=== PATIENT | female | born 1935 ===

== ENCOUNTER 2018-10-21 21:18 | Inpatient (IN) | payer MEDICARE, OTHER ==
[2018-10-21] MEDS ORDERED: Albuterol-Ipratrop 3 mg / 0.5 (3 ml) UD INH STA (21:31)
[2018-10-21] MEDS ORDERED: Magnesium Sulfate 1 gm in D5W 1 GM/100 ML BAG IVPB ONE (21:32)
[2018-10-21] MEDS ORDERED: Albuterol-Ipratrop 3 mg / 0.5 (3 ml) UD ONE ×2 (21:32→21:34)
--- NOTE | 2018-10-21 21:37 | C.PDOC ---
History Of Present Illness 83 year old female is brought to the ED by EMS for evaluation of SOB and wheezing. Patient was given Duoneb, Albuterol and Solumedrol on the field. Patient denies any previous medical history, not currently taking medications. Patient denies fever, chills, CP, palpitations, headache, injury, fall, trauma, weakness, numbness. Chief Complaint (Nursing): Respiratory Distress History Per: Patient, EMS History/Exam Limitations: no limitations Onset/Duration Of Symptoms: Hrs Current Symptoms Are (Timing): Still Present Initiating Event: Upper Respiratory Illness Quality: Tightness Current Respiratory Medications: See Home Med List Recent travel outside of the [place]: No Additional History Per: EMS Past Medical History Reviewed: Historical Data, Nursing Documentation, Vital Signs Vital Signs: Last Vital Signs Temp 98.1 F 10/21/18 21:27 Pulse 123 H 10/21/18 21:27 Resp 34 H 10/21/18 21:27 BP 147/97 H 10/21/18 21:27 Pulse Ox 98 10/21/18 21:27 - Medical History PMH: No Chronic Diseases Surgical History: No Surg Hx Family History: States: Unknown Family Hx - Social History Hx Alcohol Use: No Hx Substance Use: No - Immunization History Hx Tetanus Toxoid Vaccination: No Hx Influenza Vaccination: No Hx Pneumococcal Vaccination: No Review Of Systems Constitutional: Negative for: Fever, Chills Cardiovascular: Negative for: Chest Pain, Palpitations Respiratory: Positive for: Shortness of Breath, Wheezing. Negative for: Cough Gastrointestinal: Negative for: Nausea, Vomiting, Abdominal Pain Skin: Negative for: Rash Neurological: Negative for: Headache, Dizziness Physical Exam - Physical Exam Appears: Non-toxic, Other (dyspnic) Skin: Normal Color, Warm, Dry Head: Atraumatic, Normacephalic Eye(s): bilateral: Normal Inspection Oral Mucosa: Moist Neck: Normal ROM, Supple Chest: Symmetrical Cardiovascular: Rhythm Regular Respiratory: No Rales, No Rhonchi, Wheezing Gastrointestinal/Abdominal: Soft, No Tenderness, No Guarding, No Rebound Extremity: Normal ROM, No Tenderness, Pedal Edema (2+ bilaterally ) Neurological/Psych: Oriented x3, Normal Speech, Normal Cognition Gait: Unable To Assess ED Course And Treatment - Laboratory Results Result Diagrams: 10/21/18 21:35 10/21/18 21:35 ECG: Interpreted By Me, Viewed By Me ECG Rhythm: Sinus Tachycardia, ST/T Changes ECG Interpretation: No Acute Changes, Abnormal Interpretation Of ECG: Sinus tachycardia, poor R - wave progression V1 to V5., no acute chnages Rate From EC O2 Sat by Pulse Oximetry: 98 (BIPAP) Pulse Ox Interpretation: Normal - Radiology CXR: Interpreted by Me, Viewed By Me CXR Interpretation: Yes: Other (Right sided pleural effusion/ density.) - CT Scan/US CT chest Other Rad Studies (CT/US): Read By Radiologist, Radiology Report Reviewed CT/US Interpretation: CLINICAL HISTORY: Shortness of breath/pleural effusion. TECHNIQUE: Multiple axial, coronal, sagittal CT images were obtained through chest without IV contrast material. COMMENTS: There is no evidence of hilar or mediastinal lymphadenopathy. The heart is severely enlarged with pulmonary venous congestive changes seen consistent with CHF. Diffuse pulmonary edema is seen. There are large right and small left pleural effusions present. Small pericardial effusion is seen. Diffuse coronary arterial calcifications are present. Pulmonary arterial tree is markedly dilated consistent with pulmonary artery hypertension. Right lower lobe and right middle lobe consolidations consistent with atelectasis versus pneumonia. The visualized portions of the liver are of uniform attenuation without mass or defect. There is no intra or extrahepatic biliary ductal dilatation. The spleen is unremarkable. The visualized pancreas is of normal contour and attenuation characteristics. There is no evidence of adrenal mass. The visualized portions of the kidneys present no abnormalities. There is moderate levoscoliosis seen with apex at the level of thoracolumbar junction. There is minimal amount of chronic compression fracture deformity involving T9 vertebral body. Multilevel degenerative changes are seen involving the thoracic spine. Scattered calcifications are seen involving the aorta and visualized major branches compatible with atherosclerosis. IMPRESSION: 1. Severe cardiomegaly with pulmonary venous congestive changes and diffuse pulmonary edema consistent with CHF. 2. Large right and small left pleural effusions. 3. Small pericardial effusion. 4. Markedly dilated pulmonary arterial tree consistent with pulmonary artery hypertension. 5. RLL and RLL consolidations. . Electronically signed on Oct 21, 2018 11:39:57 PM EST by: William Hinkle M.D., [place] Certified By ABR & CBCCT. Fellowship Trained MRI and CT Specialist Medical Decision Making Medical Decision Making: Plan: * EKG * Labs * CXR * Duoneb * Magnesium sulfate * Blood culture * BIPAP On reevaluation patient having less wheezes and with more air entry in lung fay 22:15- Patient reports history of leg swelling for the past month. 23:30 - Dr. Fontaine Medicine fire battalion chief was notified and accepts the patient for admission. 23: 35 -Dr. Singh Fortune ICU fire battalion chief notified about the patient and will come evaluate the patient Disposition Discussed With Dr.: Erika Fontaine Doctor Will See Patient In The: Hospital Counseled Patient/Family Regarding: Diagnosis - Disposition Disposition: HOSPITALIZED Disposition Time: 23:37 Condition: CRITICAL Forms: [employer] ([place]) - POA Present On Arrival: None - Clinical Impression Clinical Impression: Acute CHF, Dyspnea - Scribe Statement The provider has reviewed the documentation as recorded by the Scribe Morgan Sy All medical record entries made by the Scribe were at my direction and personally dictated by me. I have reviewed the chart and agree that the record accurately reflects my personal performance of the history, physical exam, medical decision making, and the department course for this patient. I have also personally directed, reviewed, and agree with the discharge instructions and disposition.
[2018-10-21 21:38] LABS: BASO % 0.5 % (0.0-2.0); EOS % 0.5 % (0.0-4.0); HEMOGLOBIN 13.1 g/dL (11.0-16.0); LYMPH # 2.7 K/uL (1.0-4.3); MEAN CELL VOLUME 98.7 fL (81.0-99.0); MEAN CORPUSCULAR HEMOGLOBIN 32.9 pg (27.0-31.0); MEAN CORPUSCULAR HGB CONC 33.3 g/dL (33.0-37.0); MEAN PLATELET VOLUME 9.3 fL (7.2-11.7); MONO # 0.5 K/uL (0.0-0.8); MONO % 5.6 % (0.0-10.0); NEUT # 5.6 K/uL (1.8-7.0); NEUT % 63.4 % (50.0-75.0); NRBC % 0.1 % (0.0-2.0); RBC 3.98 Mil/uL (3.80-5.20); RED CELL DISTRIBUTION WIDTH 13.1 % (11.5-14.5); WHITE BLOOD COUNT 8.9 K/uL (4.8-10.8)
[2018-10-21 21:50] LABS: ALB/GLOB RATIO 1.4 (1.0-2.1); ALBUMIN 4.3 g/dL (3.5-5.0); ALT/SGPT 74 U/L (9-52); AST/SGOT 77 U/L (14-36); BLOOD UREA NITROGEN 41 mg/dL (7-17); CALCIUM 9.1 mg/dl (8.6-10.4); GFR NON-AFRICAN AMERICAN > 60
[2018-10-21 21:57] LABS: INR 1.3; PROTHROMBIN TIME 14.6 SECONDS (9.7-12.2)
[2018-10-21 21:58] LABS: B-TYPE NATRIURETIC PEPTIDE 15700 pg/mL (0-900)
[2018-10-22 00:30] LABS: ABG ALLEN TEST POS; ARTERIAL BLOOD GAS HCO3 21.3 mmol/L (21-28); ARTERIAL BLOOD GAS O2 SAT 97.5 % (95-98); ARTERIAL BLOOD GAS PCO2 32 mm/Hg (35-45); ARTERIAL BLOOD GAS PH 7.39 (7.35-7.45); ARTERIAL BLOOD GAS PO2 83 mm/Hg (80-100); ARTERIAL BLOOD GAS TCO2 20.4 mmol/L (22-28)
[2018-10-22] MEDS: Potassium Chloride 20 mEq/15 ml LIQ UD PO SCH ×3 (00:46→16:00)
[2018-10-22] MEDS: Acetylcysteine 20% Inhal Soln (4ml) PO SCH ×2 (00:47→12:06)
[2018-10-22] MEDS ORDERED: Iodixanol 320 MG/ML 100 ML BOTTLE IV ONE (00:52)
--- NOTE | 2018-10-22 02:08 | CP.PCM.CON ---
History of Present Illness - History of Present Illness History of Present Illness: 83 y/o female with no significant pmx (patient did not see a physician and took herbal medications), presents to [facility] with c/o SOB. SOB described as progressive, over the last 4 weeks. (+)decrease exercise tolerance, denies any blury vision, denies any headaches, denies any chest pain Pmx: deneis Psurg hx: deneis Social history: long time history of smoking, worked as cleaning person, retired in 1999, no illicit drugs Review of Systems - Constitutional Constitutional: As Per HPI - Cardiovascular Cardiovascular: As Per HPI - Respiratory Respiratory: As Per HPI - Gastrointestinal Gastrointestinal: As Per HPI Past Patient History - Infectious Disease Hx of Infectious Diseases: None - Tetanus Immunizations Tetanus Immunization: Unknown - Past Medical History & Family History Past Medical History?: Yes Past Family History: Reviewed and not pertinent - Past Social History Smoking Status: Never Smoked - PSYCHIATRIC Hx Substance Use: No - SURGICAL HISTORY Hx Surgeries: No - ANESTHESIA Hx Anesthesia: No Meds Allergies/Adverse Reactions: Allergies Allergy/AdvReac Type Severity Reaction Status Date / Time No Known Allergies Allergy Verified 10/21/18 21:29 - Medications Medications: Current Medications Acetylcysteine (Acetylcysteine 20%) 6 ml PO Q12H ISAIAS Stop: 10/23/18 12:31 Last Admin: 10/22/18 00:47 Dose: 6 ml Potassium Chloride (Potassium Chloride Oral Soln) 40 meq PO Q8H ISAIAS Stop: 10/22/18 16:31 Last Admin: 10/22/18 00:46 Dose: 40 meq Physical Exam - Head Exam Head Exam: ATRAUMATIC, NORMAL INSPECTION - Eye Exam Eye Exam: Conjunctival injection, Normal appearance - ENT Exam ENT Exam: Mucous Membranes Moist - Neck Exam Neck exam: Positive for: Normal Inspection Additional comments: (+)JVD - Respiratory Exam Respiratory Exam: Clear to Auscultation Bilateral, Rales, Respiratory Distress - Cardiovascular Exam Cardiovascular Exam: REGULAR RHYTHM, +S1, +S2, Systolic Murmur - GI/Abdominal Exam GI & Abdominal Exam: Normal Bowel Sounds, Soft - Back Exam Back exam: NORMAL INSPECTION - Neurological Exam Neurological exam: Alert, Oriented x3 - Skin Skin Exam: Normal Color Results - Vital Signs Recent Vital Signs: Last Vital Signs Temp 97.9 F 10/22/18 00:48 Pulse 112 H 10/22/18 00:48 Resp 26 H 10/22/18 00:48 BP 115/79 10/22/18 00:48 Pulse Ox 98 10/22/18 00:48 - Labs Result Diagrams: 10/21/18 21:35 10/21/18 21:35 Labs: Laboratory Results - last 24 hr 10/21/18 10/21/18 10/21/18 21:35 21:35 21:35 WBC 8.9 RBC 3.98 Hgb 13.1 Hct 39.3 MCV 98.7 MCH 32.9 H MCHC 33.3 RDW 13.1 Plt Count 274 MPV 9.3 Neut % (Auto) 63.4 Lymph % (Auto) 30.0 [place] % (Auto) 5.6 Eos % (Auto) 0.5 Baso % (Auto) 0.5 Neut # (Auto) 5.6 Lymph # (Auto) 2.7 [place] # (Auto) 0.5 Eos # (Auto) 0.0 Baso # (Auto) 0.0 PT 14.6 H INR 1.3 APTT 24 D-Dimer, Quantitative 2192 H Puncture Site pCO2 pO2 HCO3 ABG pH ABG Total CO2 ABG O2 Saturation ABG Base Excess Angelo Test ABG Potassium Glucose Lactate Liter Flow Crit Value Called To Crit Value Called By Crit Value Read Back Blood Gas Notified Time Sodium 142 Potassium 3.1 L Chloride 107 Carbon Dioxide 24 Anion Gap 14 BUN 41 H Creatinine 0.8 Est GFR ( Amer) > 60 Est GFR (Non-Af Amer) > 60 Random Glucose 176 H Calcium 9.1 Total Bilirubin 0.8 AST 77 H ALT 74 H Alkaline Phosphatase 94 Troponin I NT-Pro-B Natriuret Pep 56874 H Total Protein 7.4 Albumin 4.3 Globulin 3.1 Albumin/Globulin Ratio 1.4 Arterial Blood Potassium 10/21/18 10/22/18 22:28 00:25 WBC RBC Hgb Hct MCV MCH MCHC RDW Plt Count MPV Neut % (Auto) Lymph % (Auto) [place] % (Auto) Eos % (Auto) Baso % (Auto) Neut # (Auto) Lymph # (Auto) [place] # (Auto) Eos # (Auto) Baso # (Auto) PT INR APTT D-Dimer, Quantitative Puncture Site Rradial pCO2 32 L pO2 83 HCO3 21.3 ABG pH 7.39 ABG Total CO2 20.4 L ABG O2 Saturation 97.5 ABG Base Excess -4.6 L Angelo Test Pos ABG Potassium 2.5 L* Glucose 180 H Lactate 2.1 Liter Flow 3.0 Crit Value Called To Dr. chester menjivar Crit Value Called By Ruthann jimenez,weatherization specialist Crit Value Read Back Y Blood Gas Notified Time 30 Sodium 146.0 Potassium Chloride 112.0 H Carbon Dioxide Anion Gap BUN Creatinine Est GFR ( Amer) Est GFR (Non-Af Amer) Random Glucose Calcium Total Bilirubin AST ALT Alkaline Phosphatase Troponin I 0.1530 H* NT-Pro-B Natriuret Pep Total Protein Albumin Globulin Albumin/Globulin Ratio Arterial Blood Potassium 2.5 L* Assessment & Plan - Assessment and Plan (Free Text) Assessment: Acute on chronic respiratory failure: suspect 2nd heart failure, avoid fluid overloaded states, continue bi-pap PRN, pre-test probability of PE low -Acute on chronic diastolic heart failure/NSTEMI: check trop q8hrs, start IV hep princess, start asa, av jake regina,echo, start acei as bp tolerates -Pulmonary HTN: exact cause unknown ?herbal medication (phenphen), autoimmue, chronic PE, valvular or EGF, start solumedrol, check RF, CLAIRE, -NPO -BGM q6hrs, ISS lispro _DVT ppx heparin IV -PUD ppx protonix Multiple diagnostic tests pending (CT evalute vasculature) d/w ICU nurse. - Date & Time Date: 10/22/18 Time: 02:14
[2018-10-22] MEDS ORDERED: Heparin25000 units/250ml 1/2NS 25,000 UNITS/250 ML BAG IV PRN (02:14)
[2018-10-22] MEDS ORDERED: MethylPREDNISolone 40 mg Vial IVP SCH (02:30)
[2018-10-22 02:38] LABS: CK-MB 3.4 ng/mL (0.0-3.38); TROPONIN I 0.396 ng/mL (0.00-0.120)
[2018-10-22] MEDS: Piperacillin/Tazobact 3.375 GM in Sodium Chloride 100 ML IVPB SCH ×4 (04:21→22:23)
[2018-10-22 06:29] LABS: ALB/GLOB RATIO 1.4 (1.0-2.1); ALBUMIN 3.9 g/dL (3.5-5.0); ALT/SGPT 83 U/L (9-52); AST/SGOT 91 U/L (14-36); BLOOD UREA NITROGEN 37 mg/dL (7-17); CALCIUM 8.9 mg/dl (8.6-10.4); GFR NON-AFRICAN AMERICAN > 60; HDL CHOLESTEROL 66 mg/dL (30-70)
[2018-10-22 06:40] LABS: LDL CHOLESTEROL 95 mg/dL (0-129)
--- NOTE | 2018-10-22 08:52 | RAD ---
Chest x-ray single frontal view HISTORY: Shortness of breath. COMPARISON: None available. Findings: Moderate to severe venous congestion. Moderate right and small left pleural effusion. Consolidative changes in the right mid to lower lung zone as well as the left lung base. Enlarged ectatic aorta. Cardiomegaly. Degenerative changes in the spine and shoulders. Impression: Moderate to severe venous congestion. Moderate right and small left pleural effusion. Consolidative changes in the right mid to lower lung zone as well as the left lung base. Enlarged ectatic aorta. Cardiomegaly.
[2018-10-22 09:24] LABS: ARTERIAL BLOOD GAS HCO3 20.7 mmol/L (21-28); ARTERIAL BLOOD GAS O2 SAT 98.7 % (95-98); ARTERIAL BLOOD GAS PCO2 25 mm/Hg (35-45); ARTERIAL BLOOD GAS PH 7.44 (7.35-7.45); ARTERIAL BLOOD GAS PO2 107 mm/Hg (80-100); ARTERIAL BLOOD GAS TCO2 17.8 mmol/L (22-28)
--- NOTE | 2018-10-22 09:46 | CT ---
CT chest HISTORY: Shortness of breath. Pleural effusion. COMPARISON: X-ray dated 10/21/2018 Technique: Multiple contiguous axial images were performed through the chest without the use of intravenous contrast. Subsequently, sagittal and coronal reformatted images were obtained. This CT exam was performed using one or more of the following dose reduction techniques: Automated exposure control, adjustment of the mA and/or kV according to patient size, and/or use of iterative reconstruction technique. Findings: Moderate right and small left pleural effusion Small pericardial effusion. Coronary calcifications and or stents Cardiomegaly. Prominence of the pulmonary arteries. Atherosclerotic calcification within the aorta. Aneurysmal prominence of the ascending thoracic aorta measuring 3.7 centimeters. Diffuse anasarca in the subcutaneous soft tissues. No significant axillary adenopathy. Heterogeneous thyroid gland Shotty pre-vascular lymph nodes. Precarinal lymph node measures up to 1.3 centimeters. Limited evaluation of the hilar region without contrast. Limited evaluation of the intra-abdominal organs without contrast. Degenerative changes in the spine. Right lung: Diffuse increased interstitial edema. Motion artifact. Patchy consolidative changes within the inferior aspect of the right middle lobe as well as within right lower lobe. Right hilar consolidative changes Left lung: Motion artifact. Diffuse interstitial edema. Mild nodular consolidation along the periphery of the left upper lobe on series 3, image 34. Left basilar consolidation and/or atelectasis. Atelectasis along the fissure on the left. Trachea thru central airways are patent. Sclerotic bone island within in an upper thoracic vertebral body. Loss of height of the superior endplate of a lower thoracic vertebral body. Scoliotic curvature of the spine. Impression: Cardiomegaly with pulmonary venous congestive changes and diffuse pulmonary edema consistent with congestive heart failure. Large right and small left pleural effusions. Small pericardial effusion. Dilated pulmonary arterial tree which may represent pulmonary arterial hypertension. Clinical correlation. Scattered consolidative changes in the lungs. Additional findings as above. A preliminary report was generated at 11:39 p.m. on 10/21/[address] William Hinkle from [facility].
--- NOTE | 2018-10-22 09:57 | CT ---
CT chest pulmonary angiogram HISTORY: Elevated D-dimer. COMPARISON: CT chest dated 10/21/2018 Technique: CT chest pulmonary angiogram was performed utilizing multiple contiguous axial images through the chest with the use of intravenous contrast. Subsequently, sagittal and coronal reformatted images as well as sagittal and coronal MIPS reformatted images were obtained. Findings: Moderate right and small left pleural effusion Small pericardial effusion. Coronary calcifications and or stents. Cardiomegaly. Prominence of the pulmonary arteries. No evidence of discrete pulmonary embolism. Atherosclerotic calcification within the aorta. Aneurysmal prominence of the ascending thoracic aorta measuring 3.7 centimeters. Diffuse anasarca in the subcutaneous soft tissues. No significant axillary adenopathy. Heterogeneous thyroid gland Shotty pre-vascular lymph nodes. No significant hilar adenopathy. Precarinal lymph node measures up to 1.3 centimeters. Degenerative changes in the spine. Right lung: Diffuse increased interstitial edema. Motion artifact. Patchy consolidative changes within the inferior aspect of the right middle lobe as well as within right lower lobe. Right hilar consolidative changes Left lung: Motion artifact. Diffuse interstitial edema. Mild nodular consolidation along the periphery of the left upper lobe. Left basilar consolidation and/or atelectasis. Atelectasis along the fissure on the left. Trachea thru central airways are patent. Sclerotic bone island within in an upper thoracic vertebral body. Loss of height of the superior endplate of a lower thoracic vertebral body. Incidentally noted are a few left breast calcifications. Correlation with mammogram is recommended. Scoliotic curvature of the spine. Incidentally noted is a small hypodensity at the upper pole of the left kidney, too small to adequately characterize. She Impression: No evidence of acute pulmonary embolism. Cardiomegaly with pulmonary venous congestive changes and diffuse pulmonary edema consistent with congestive heart failure. Large right and small left pleural effusions. Small pericardial effusion. Dilated pulmonary arterial tree which may represent pulmonary arterial hypertension. Clinical correlation. Scattered consolidative changes in the lungs. Additional findings as above. A preliminary report was generated at 1:29 a.m. on 10/22/[address] Linn Kern from [facility].
[2018-10-22 10:49] LABS: SQUAMOUS EPITHIAL 5 /hpf (0-5); URINE BACTERIA RARE (<OCC); URINE BILIRUBIN NEGATIVE (NEGATIVE); URINE BLOOD NEGATIVE (NEGATIVE); URINE CLARITY Clear (Clear); URINE COLOR Yellow (YELLOW); URINE GLUCOSE (UA) NORMAL (Normal); URINE LEUKOCYTE ESTERASE TRACE Leu/uL (Negative); URINE PROTEIN NEGATIVE (NEGATIVE); URINE UROBILINOGEN NORMAL mg/dL (0.2-1.0)
[2018-10-22 11:20] LABS: CK-MB 6.32 ng/mL (0.0-3.38); TROPONIN I 1.13 ng/mL (0.00-0.120)
[2018-10-22 18:32] LABS: CK-MB 5.11 ng/mL (0.0-3.38); TROPONIN I 1.61 ng/mL (0.00-0.120)
[2018-10-23] MEDS: Acetylcysteine 20% Inhal Soln (4ml) PO SCH ×2 (00:52→12:54)
[2018-10-23] MEDS: Piperacillin/Tazobact 3.375 GM in Sodium Chloride 100 ML IVPB SCH ×4 (03:46→21:18)
[2018-10-23 06:30] LABS: HEMOGLOBIN 11.3 g/dL (11.0-16.0); MEAN CELL VOLUME 97.9 fL (81.0-99.0); MEAN CORPUSCULAR HEMOGLOBIN 32.5 pg (27.0-31.0); MEAN CORPUSCULAR HGB CONC 33.2 g/dL (33.0-37.0); MEAN PLATELET VOLUME 9.7 fL (7.2-11.7); RBC 3.47 Mil/uL (3.80-5.20); RED CELL DISTRIBUTION WIDTH 13.1 % (11.5-14.5)
[2018-10-23 06:40] LABS: BLOOD UREA NITROGEN 36 mg/dL (7-17); CALCIUM 8.6 mg/dl (8.6-10.4); GFR NON-AFRICAN AMERICAN 60
--- NOTE | 2018-10-23 08:00 | HP ---
The patient is an 83-year-old female. The patient was seen and examined at bedside on 10/22/2018. CHIEF COMPLIANT: Shortness of breath and respiratory distress. HISTORY OF PRESENT ILLNESS: The patient is an 83-year-old female, brought to the emergency room by EMS for evaluation of shortness of breath and wheezing. The patient was given DuoNeb, albuterol, and Solu-Medrol on the field. The patient denies any previous medical history, not recently taking any medications. The patient denies any fevers, chills, chest pain, palpitation, headache, injury, fall, trauma, or weakness. EMS brought the patient. History of upper respiratory tract infection, having tightness. PAST MEDICAL HISTORY: No chronic disease. PAST SURGICAL HISTORY: No surgical history. FAMILY HISTORY: Father and mother, noncontributory. HABITS: No smoking. No drugs. No ethanol. REVIEW OF SYSTEMS: The patient was seen and examined at the bedside in the ICU. No fever, no chills, no chest pain, no palpitation. Positive for shortness of breath and wheezing. No nausea, vomiting, or diarrhea. No abdominal pain. No rash. No headache. No dizziness. PHYSICAL EXAMINATION: VITAL SIGNS: Temperature 98.1, pulse 123, respiratory rate 34, and blood pressure 147/97. Pulse oximetry 98. HEENT: Head, normocephalic and atraumatic. Eyes, PERRLA. Extraocular muscles are intact. Conjunctivae clear. Nose patent. Mucous membranes moist. NECK: Supple. No carotid bruits, JVD, or thyromegaly. CHEST: Bilaterally symmetrical. HEART: S1 and S2 positive. LUNGS: Clear to auscultation. ABDOMEN: Soft. Bowel sounds present. No organomegaly. EXTREMITIES: No edema. No cyanosis. NEUROLOGIC: The patient is awake and alert, moving all four extremities. No focal deficit. LABORATORY DATA: White blood cells 8.9, hemoglobin 13.1, hematocrit 39.3, and platelets 274. Sodium 142, potassium 3.1, BUN 41, creatinine 0.8, and glucose 176. ASSESSMENT AND PLAN: The patient is an 83-year-old female with hypokalemia, hyperglycemia, came with acute congestive heart failure, dyspnea, admitted in the intensive care unit. CAT scan of the chest done. Seen by associate professor of surgery, Odin Fortune MD. Continue BiPAP p.r.n. [id number] myocardial infarction . Started on heparin. Started on aspirin. Echocardiogram is ordered. The patient tolerated BiPAP. History of rule out pulmonary hypertension. The patient was taking herbal medications. The patient is n.p.o. Derek vein thrombosis prophylaxis with IV heparin. Gastrointestinal prophylaxis with Protonix. CAT scan which shows no evidence of acute pulmonary embolism, cardiomegaly with pulmonary venous congestion changes and diffuse pulmonary edema consistent with congestive heart failure, large right and small left pleural effusion, small pericardial effusion, dilated pulmonary artery, arterial tree which may represent pulmonary artery hypertension, scattered consolidative changes in the lungs. The patient is seen by Dr. William Soto, [employer]. Started on acetylcysteine, aspirin, Crestor, Duoneb, furosemide, magnesium sulfate, Plavix, Solu-Medrol given. Antibiotics started. Repeat laboratories. We will follow up. Erika Fontaine MD [facility]
--- NOTE | 2018-10-23 12:12 | CP.PCM.CON ---
<Mindy Preston - Last Filed: 10/23/18 18:01> History of Present Illness - History of Present Illness History of Present Illness: Cardiology Consult Note This is an 83 year old female with no significant past medical history, patient reports she has been a vegetarian for the past 30 years, only takes herbal medications, and has not visited a PMD for greater than 30-40 years. Patient is hard of hearing. As per family at bedside, patient has been having symptoms of shortness of breath, fatigue, and dypsnea on exertion for about 1 month. Up until the night prior, from admission, she had severe shortness of breath, which prompted her family to bring her to the ED. Patient has significant bilateral pleurial effusions, with elevated troponins. POA was called Desire Erickson [phone], consent was retrieved for cardiac catherization. PMHx: As noted above PSHx: Denied All: NKDA SHx: Denied FHx: extensive heart disease, MIs in both sides of the family Review of Systems - Constitutional Constitutional: Fatigue. absent: Chills, Fever - EENT Eyes: absent: Change in Vision, Diplopia Ears: absent: Ear Discharge, Tinnitus Nose/Mouth/Throat: absent: Nasal Congestion, Nasal Discharge, Hoarsness, Sore Throat - Cardiovascular Cardiovascular: Dyspnea, Dyspnea on Exertion. absent: Chest Pain, Chest Pain at Rest, Chest Pain with Activity, Leg Edema - Respiratory Respiratory: Cough, Dyspnea on Exertion. absent: Wheezing, Chest Congestion, Excessive Mucous Production - Gastrointestinal Gastrointestinal: absent: Abdominal Pain, Diarrhea, Nausea, Vomiting - Genitourinary Genitourinary: absent: Dysuria, Hematuria - Musculoskeletal Musculoskeletal: absent: Back Pain, Neck Pain, Numbness - Neurological Neurological: absent: Abnormal Gait, Abnormal Movements, Syncope, Weakness - Psychiatric Psychiatric: absent: Anxiety, Homicidal Ideation, Suicidal Ideation - Endocrine Endocrine: absent: Polydipsia, Polyphagia, Polyuria - Hematologic/Lymphatic Hematologic: absent: Easy Bleeding, Easy Bruising, Lymphadenopathy Past Patient History - Infectious Disease Hx of Infectious Diseases: None - Tetanus Immunizations Tetanus Immunization: Unknown - Past Medical History & Family History Past Medical History?: Yes Past Family History: Reviewed and not pertinent - Past Social History Smoking Status: Never Smoked - MUSCULOSKELETAL/RHEUMATOLOGICAL Hx Falls: No - PSYCHIATRIC Hx Substance Use: No - SURGICAL HISTORY Hx Surgeries: No - ANESTHESIA Hx Anesthesia: No Meds Allergies/Adverse Reactions: Allergies Allergy/AdvReac Type Severity Reaction Status Date / Time No Known Allergies Allergy Verified 10/21/18 21:29 - Medications Medications: Current Medications Acetylcysteine (Acetylcysteine 20%) 6 ml PO Q12H [facility] Stop: 10/23/18 12:31 Last Admin: 10/23/18 00:52 Dose: 6 ml Aspirin (Aspirin Chewable) 81 mg PO DAILY [facility] Last Admin: 10/23/18 10:22 Dose: 81 mg Clopidogrel Bisulfate (Plavix) 75 mg PO DAILY [facility] Last Admin: 10/23/18 10:27 Dose: 75 mg Furosemide (Lasix) 20 mg IVP Q12 [facility] Last Admin: 10/23/18 10:29 Dose: 20 mg Heparin Sodium/Sodium Chloride (Heparin 31077 Units/250ml 1/2 Normal Saline) 25,000 units in 250 mls @ 6.532 mls/hr IV .Q24H PRN; Protocol PRN Reason: ADJUST RATE PER PROTOCOL Last Titration: 10/23/18 10:04 Dose: 14 units/kg/hr, 7.62 mls/hr Piperacillin Sod/Tazobactam (Sod 3.375 gm/ Sodium Chloride) 100 mls @ 200 mls/hr IVPB Q6H [facility]; Protocol Last Admin: 10/23/18 10:27 Dose: 200 mls/hr Rosuvastatin Calcium (Crestor) 20 mg PO HS [facility] Last Admin: 10/22/18 22:20 Dose: 20 mg Vitamin A (Vitamin A & D Oint Ud Foilpak) 1 ea TOP Q4H PRN PRN Reason: Dry skin Physical Exam - Constitutional Appears: No Acute Distress - Head Exam Head Exam: NORMAL INSPECTION, NORMOCEPHALIC - Eye Exam Eye Exam: EOMI, Normal appearance, PERRL Pupil Exam: NORMAL ACCOMODATION - ENT Exam ENT Exam: Mucous Membranes Moist - Respiratory Exam Respiratory Exam: Decreased Breath Sounds, Rales - Cardiovascular Exam Cardiovascular Exam: +S1, +S2. absent: Irregular Rhythm - GI/Abdominal Exam GI & Abdominal Exam: Normal Bowel Sounds, Soft. absent: Distended, Tenderness - Extremities Exam Extremities exam: Positive for: normal inspection, pedal pulses present. Negative for: pedal edema, tenderness - Neurological Exam Neurological exam: Alert, Oriented x3 - Psychiatric Exam Psychiatric exam: Normal Affect, Normal Mood - Skin Skin Exam: Dry, Intact, Normal Color, Warm Results - Vital Signs Recent Vital Signs: Last Vital Signs Temp 99.0 F 10/23/18 11:43 Pulse 96 H 10/23/18 11:39 Resp 31 H 10/23/18 11:39 BP 126/65 10/23/18 11:39 Pulse Ox 78 L 10/23/18 11:39 - Labs Result Diagrams: 10/23/18 06:22 10/23/18 06:16 Labs: Laboratory Results - last 24 hr 10/22/18 10/22/18 10/22/18 12:07 17:51 17:51 WBC RBC Hgb Hct MCV MCH MCHC RDW Plt Count MPV APTT 45 H Sodium Potassium Chloride Carbon Dioxide Anion Gap BUN Creatinine Est GFR ( Amer) Est GFR (Non-Af Amer) POC Glucose (mg/dL) 181 H Random Glucose Calcium Total Creatine Kinase 102 CK-MB (Mass) 5.11 H Troponin I 1.6100 H* TSH 3rd Generation 10/22/18 10/23/18 10/23/18 23:51 06:16 06:22 WBC 12.0 H RBC 3.47 L Hgb 11.3 Hct 33.9 L MCV 97.9 MCH 32.5 H MCHC 33.2 RDW 13.1 Plt Count 206 MPV 9.7 APTT Sodium 142 Potassium 4.1 Chloride 105 Carbon Dioxide 27 Anion Gap 14 BUN 36 H Creatinine 0.9 Est GFR ( Amer) > 60 Est GFR (Non-Af Amer) 60 POC Glucose (mg/dL) 118 H Random Glucose 104 Calcium 8.6 Total Creatine Kinase CK-MB (Mass) Troponin I 2.0700 H* TSH 3rd Generation 0.38 L 10/23/18 10/23/18 06:34 11:05 WBC RBC Hgb Hct MCV MCH MCHC RDW Plt Count MPV APTT 42 H Sodium Potassium Chloride Carbon Dioxide Anion Gap BUN Creatinine Est GFR ( Amer) Est GFR (Non-Af Amer) POC Glucose (mg/dL) 128 H Random Glucose Calcium Total Creatine Kinase CK-MB (Mass) Troponin I TSH 3rd Generation Assessment & Plan - Assessment and Plan (Free Text) Plan: NSTEMI s/p Cath - 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 Will need emergency CABG. Disposition: SARAH Erickson (niece) [phone] - made patient DNR 10/23/18, 18:00 (Dr. Soto & myself present), stated she does not want any aggressive interventions, medical management ONLY. Management: - As per family, medical management only: ASA, Plavix, Metopropol, Lasix, Crestor - Continue Heparin Drip Ascending Thoracic Aorta Aneurysm - CT Chest: 3.7cm Case discussed with Dr. Soto, Mindy Preston DO, PGY2 <William Soto - Last Filed: 10/23/18 22:09> Meds - Medications Medications: Current Medications Aspirin (Aspirin Chewable) 81 mg PO DAILY [facility] Last Admin: 10/23/18 10:22 Dose: 81 mg Clopidogrel Bisulfate (Plavix) 75 mg PO DAILY [facility] Last Admin: 10/23/18 10:27 Dose: 75 mg Docusate Sodium (Colace) 100 mg PO TID [facility] Last Admin: 10/23/18 18:40 Dose: 100 mg Furosemide (Lasix) 20 mg IVP Q12 [facility] Last Admin: 10/23/18 21:12 Dose: 20 mg Piperacillin Sod/Tazobactam (Sod 3.375 gm/ Sodium Chloride) 100 mls @ 200 mls/hr IVPB Q6H [facility]; Protocol Last Admin: 10/23/18 21:18 Dose: 200 mls/hr Heparin Sodium/Sodium Chloride (Heparin 45435 Units/250ml 1/2 Normal Saline) 25,000 units in 250 mls @ 7.62 mls/hr IV .Q24H PRN; Protocol PRN Reason: ADJUST RATE PER PROTOCOL Last Admin: 10/23/18 15:51 Dose: 14 units/kg/hr, 7.62 mls/hr Metoprolol Succinate (Toprol Xl) 12.5 mg PO DAILY [facility] Rosuvastatin Calcium (Crestor) 20 mg PO HS [facility] Last Admin: 10/23/18 21:12 Dose: 20 mg Vitamin A (Vitamin A & D Oint Ud Foilpak) 1 ea TOP Q4H PRN PRN Reason: Dry skin Last Admin: 10/23/18 12:55 Dose: 1 ea Results - Vital Signs Recent Vital Signs: Last Vital Signs Temp 97.8 F 10/23/18 20:00 Pulse 96 H 10/23/18 21:00 Resp 25 H 10/23/18 21:00 BP 107/65 10/23/18 21:12 Pulse Ox 97 10/23/18 21:00 - Labs Result Diagrams: 10/23/18 06:22 10/23/18 06:16 Labs: Laboratory Results - last 24 hr 10/22/18 10/23/18 10/23/18 23:51 06:16 06:22 WBC 12.0 H RBC 3.47 L Hgb 11.3 Hct 33.9 L MCV 97.9 MCH 32.5 H MCHC 33.2 RDW 13.1 Plt Count 206 MPV 9.7 APTT Sodium 142 Potassium 4.1 Chloride 105 Carbon Dioxide 27 Anion Gap 14 BUN 36 H Creatinine 0.9 Est GFR ( Amer) > 60 Est GFR (Non-Af Amer) 60 POC Glucose (mg/dL) 118 H Random Glucose 104 Calcium 8.6 Troponin I 2.0700 H* TSH 3rd Generation 0.38 L 10/23/18 10/23/18 10/23/18 06:34 11:05 16:08 WBC RBC Hgb Hct MCV MCH MCHC RDW Plt Count MPV APTT 42 H 52 H D Sodium Potassium Chloride Carbon Dioxide Anion Gap BUN Creatinine Est GFR ( Amer) Est GFR (Non-Af Amer) POC Glucose (mg/dL) 128 H Random Glucose Calcium Troponin I TSH 3rd Generation 10/23/18 18:10 WBC RBC Hgb Hct MCV MCH MCHC RDW Plt Count MPV APTT Sodium Potassium Chloride Carbon Dioxide Anion Gap BUN Creatinine Est GFR ( Amer) Est GFR (Non-Af Amer) POC Glucose (mg/dL) 80 Random Glucose Calcium Troponin I TSH 3rd Generation Assessment & Plan - Assessment and Plan (Free Text) Plan: D/W Patient and the POA Ms. Desire Erickson. They do not want any invasive procedures. They understand the risk of heart attack, cardiac arrest and sudden . They equest medical management only. Upon the request of the patient and the POA patient made DNR. Order written. Message communicated to the Primary attending and the journeyman press operator on the case
[2018-10-23] MEDS: Vitamins A & D Oint UD Foilpak TOP PRN (12:55)
[2018-10-23] MEDS ORDERED: Heparin25000 units/250ml 1/2NS 25,000 UNITS/250 ML BAG IV PRN (13:00)
--- NOTE | 2018-10-23 14:27 | CP.CCUPN ---
CCU Subjective - Physician Review Subjective (Free Text): 10/23/18 14:23 Kal Daviesbetoblaise PGY1 Progress note for Dr. Gordon Pt was examined at bedside this morning. She reports improvement of her shortness of breath. She reports some confusion when she woke up this morning, she felt disoriented. She denies any headache, dizziness, chest pain, abdominal pain, nausea, vomiting, diarrhea, dysuria. CCU Objective - Vital Signs / Intake & Output Vital Signs (Last 4 hours): Vital Signs Temp Pulse Resp BP Pulse Ox 10/23/18 13:17 83 21 95/57 L 92 L 10/23/18 12:17 88 17 103/59 L 83 L 10/23/18 11:43 99.0 F 10/23/18 11:39 96 H 31 H 126/65 78 L 10/23/18 10:29 99/63 L 10/23/18 10:25 90 21 99/63 L 97 Intake and Output (Last 8hrs): Intake & Output 10/22/18 10/23/18 10/23/18 22:59 06:59 14:59 Intake Total 1213 570 649.9 Output Total 1075 1440 702 Balance 138 -870 -52.1 Intake: IV 200 Intake, IV Amount 563 470 149.9 Left Forearm 7 Left Wrist 63 63 49.9 Right Forearm 500 400 100 Oral 650 100 Tube Feeding 300 Output: Urine 1075 1440 702 Urethral (Dhaliwal) 1075 1440 702 Other: # Bowel Movements 0 1 1 - Physical Exam Head: Positive for: Atraumatic, Normocephalic Pupils: Positive for: PERRL Extroacular Muscles: Positive for: EOMI Conjunctiva: Positive for: Normal Mouth: Positive for: Moist Mucous Membranes Neck: Positive for: Normal Range of Motion Respiratory/Chest: Positive for: Clear to Auscultation, Good Air Exchange. Negative for: Respiratory Distress, Accessory Muscle Use, Wheezes, Rales, Rhonchi Cardiovascular: Positive for: Regular Rate and Rhythm, Normal S1, S2 Abdomen: Positive for: Normal Bowel Sounds. Negative for: Tenderness, Distention, Peritoneal Signs, Rebound, Guarding Upper Extremity: Positive for: Normal Inspection. Negative for: Cyanosis, Edema Lower Extremity: Positive for: Normal Inspection, Edema. Negative for: CALF TENDERNESS, Erythema Neurological: Positive for: GCS=15, CN II-XII Intact, Speech Normal Skin: Positive for: Warm, Dry, Normal Color. Negative for: Rashes Psychiatric: Positive for: Alert, Oriented x 3 - Medications Active Medications: Active Medications Generic Name Dose Route Start Last Admin Trade Name Freq PRN Reason Stop Dose Admin Aspirin 81 mg 10/22/18 10:00 10/23/18 10:22 Aspirin Chewable PO 81 mg DAILY [facility] Administration Clopidogrel Bisulfate 75 mg 10/22/18 10:00 10/23/18 10:27 Plavix PO 75 mg DAILY [facility] Administration Docusate Sodium 100 mg 10/23/18 14:00 Colace PO TID [facility] Furosemide 20 mg 10/23/18 10:00 10/23/18 10:29 Lasix IVP 20 mg Q12 [facility] Administration Piperacillin Sod/Tazobactam 100 mls @ 200 mls/hr 10/22/18 04:00 10/23/18 10:27 Sod 3.375 gm/ Sodium Chloride IVPB 200 mls/hr Q6H [facility] Administration Protocol Heparin Sodium/Sodium Chloride 25,000 units in 250 mls @ 7.62 mls/hr 10/23/18 13:00 Heparin 54127 Units/250ml 1/2 Normal Saline IV .Q24H PRN ADJUST RATE PER PROTOCOL Protocol 14 UNITS/KG/HR Rosuvastatin Calcium 20 mg 10/22/18 04:00 10/22/18 22:20 Crestor PO 20 mg HS [facility] Administration Vitamin A 1 ea 10/23/18 10:56 10/23/18 12:55 Vitamin A & D Oint Ud Foilpak TOP 1 ea Q4H PRN Administration Dry skin - Patient Studies Lab Studies: Microbiology Studies 10/21/18 20:50 Blood Culture - Preliminary Blood NO GROWTH AFTER 24 HOURS 10/21/18 21:30 Blood Culture - Preliminary Blood NO GROWTH AFTER 24 HOURS Lab Studies 10/23/18 10/23/18 10/23/18 Range/Units 11:05 06:34 06:22 WBC 12.0 H (4.8-10.8) K/uL RBC 3.47 L (3.80-5.20) Mil/uL Hgb 11.3 (11.0-16.0) g/dL Hct 33.9 L (34.0-47.0) % MCV 97.9 (81.0-99.0) fL MCH 32.5 H (27.0-31.0) pg MCHC 33.2 (33.0-37.0) g/dL RDW 13.1 (11.5-14.5) % Plt Count 206 (130-400) K/uL MPV 9.7 (7.2-11.7) fL APTT 42 H (21-34) SECONDS Sodium (132-148) mmol/L Potassium (3.6-5.2) mmol/L Chloride (98-107) mmol/L Carbon Dioxide (22-30) mmol/L Anion Gap (10-20) BUN (7-17) mg/dL Creatinine (0.7-1.2) mg/dL Est GFR ( Amer) Est GFR (Non-Af Amer) POC Glucose (mg/dL) 128 H (65-110) mg/dL Random Glucose (65-105) mg/dL Calcium (8.6-10.4) mg/dl Total Creatine Kinase (30-135) U/L CK-MB (Mass) (0.0-3.38) ng/mL Troponin I (0.00-0.120) ng/mL TSH 3rd Generation (0.46-4.68) mIU/L 10/23/18 10/22/18 10/22/18 Range/Units 06:16 23:51 17:51 WBC (4.8-10.8) K/uL RBC (3.80-5.20) Mil/uL Hgb (11.0-16.0) g/dL Hct (34.0-47.0) % MCV (81.0-99.0) fL MCH (27.0-31.0) pg MCHC (33.0-37.0) g/dL RDW (11.5-14.5) % Plt Count (130-400) K/uL MPV (7.2-11.7) fL APTT 45 H (21-34) SECONDS Sodium 142 (132-148) mmol/L Potassium 4.1 (3.6-5.2) mmol/L Chloride 105 (98-107) mmol/L Carbon Dioxide 27 (22-30) mmol/L Anion Gap 14 (10-20) BUN 36 H (7-17) mg/dL Creatinine 0.9 (0.7-1.2) mg/dL Est GFR ( Amer) > 60 Est GFR (Non-Af Amer) 60 POC Glucose (mg/dL) 118 H (65-110) mg/dL Random Glucose 104 (65-105) mg/dL Calcium 8.6 (8.6-10.4) mg/dl Total Creatine Kinase (30-135) U/L CK-MB (Mass) (0.0-3.38) ng/mL Troponin I 2.0700 H* (0.00-0.120) ng/mL TSH 3rd Generation 0.38 L (0.46-4.68) mIU/L 10/22/18 Range/Units 17:51 WBC (4.8-10.8) K/uL RBC (3.80-5.20) Mil/uL Hgb (11.0-16.0) g/dL Hct (34.0-47.0) % MCV (81.0-99.0) fL MCH (27.0-31.0) pg MCHC (33.0-37.0) g/dL RDW (11.5-14.5) % Plt Count (130-400) K/uL MPV (7.2-11.7) fL APTT (21-34) SECONDS Sodium (132-148) mmol/L Potassium (3.6-5.2) mmol/L Chloride (98-107) mmol/L Carbon Dioxide (22-30) mmol/L Anion Gap (10-20) BUN (7-17) mg/dL Creatinine (0.7-1.2) mg/dL Est GFR ( Amer) Est GFR (Non-Af Amer) POC Glucose (mg/dL) (65-110) mg/dL Random Glucose (65-105) mg/dL Calcium (8.6-10.4) mg/dl Total Creatine Kinase 102 (30-135) U/L CK-MB (Mass) 5.11 H (0.0-3.38) ng/mL Troponin I 1.6100 H* (0.00-0.120) ng/mL TSH 3rd Generation (0.46-4.68) mIU/L Laboratory Results - last 24 hr 10/22/18 10/22/1818 17:51 17:51 23:51 WBC RBC Hgb Hct MCV MCH MCHC RDW Plt Count MPV APTT 45 H Sodium Potassium Chloride Carbon Dioxide Anion Gap BUN Creatinine Est GFR ( Amer) Est GFR (Non-Af Amer) POC Glucose (mg/dL) 118 H Random Glucose Calcium Total Creatine Kinase 102 CK-MB (Mass) 5.11 H Troponin I 1.6100 H* TSH 3rd Generation 10/23/18 10/23/18 10/23/18 06:16 06:22 06:34 WBC 12.0 H RBC 3.47 L Hgb 11.3 Hct 33.9 L MCV 97.9 MCH 32.5 H MCHC 33.2 RDW 13.1 Plt Count 206 MPV 9.7 APTT 42 H Sodium 142 Potassium 4.1 Chloride 105 Carbon Dioxide 27 Anion Gap 14 BUN 36 H Creatinine 0.9 Est GFR ( Amer) > 60 Est GFR (Non-Af Amer) 60 POC Glucose (mg/dL) Random Glucose 104 Calcium 8.6 Total Creatine Kinase CK-MB (Mass) Troponin I 2.0700 H* TSH 3rd Generation 0.38 L 10/23/18 11:05 WBC RBC Hgb Hct MCV MCH MCHC RDW Plt Count MPV APTT Sodium Potassium Chloride Carbon Dioxide Anion Gap BUN Creatinine Est GFR ( Amer) Est GFR (Non-Af Amer) POC Glucose (mg/dL) 128 H Random Glucose Calcium Total Creatine Kinase CK-MB (Mass) Troponin I TSH 3rd Generation Fingerstick Blood Sugar Results: 188 Review of Systems - Review of Systems Review of Systems: as per [facility] Critical Care Progress Note - Nutrition Nutrition: Nutrition Category Date Time Status NPO Diet [DIET] Diets 10/23/18 Lunch Active Assessment/Plan - Assessment and Plan (Free Text) Assessment: 83yo F with no PMH admitted for acute on chronic respiratory failure, likely secondary to heart failure. Pt with NSTEMI and elevated troponins, planned for cath today with Dr. Soto. Plan: Neuro - AAOx3 - no focal deficits Cardio - NSTEMI - CT angio 10/22: no PE. cardiomegaly w/ pulmonary venous congestion. pulmonary edema consistent w/ CHF. large R and small L pleural effusions. small pericardial effusion. - troponins uptrending, 1.61 --> 2.07 - mantain normotension - ASA 81 po daily - plavix 75 po daily - lasix 20mg IV q12h - crestor 20mg po HS - f/u ECHO - Cardio consulted, Dr. Soto - for cath today Pulm - maintain SpO2 <92% - CT angio 10/22: no PE. cardiomegaly w/ pulmonary venous congestion. pulmonary edema consistent w/ CHF. large R and small L pleural effusions. small pericardial effusion. - lasix 20mg IV BID GI - CT abd/pel: stool impaction, as read by me - as per RN report, 1 BM overnight and 1 BM this morning - dulcolax 5mg PO once - colace 100mg PO TID Renal - no active issues Heme - no active issues ID - no active issues - BCx neg - zosyn 3.375mg IV q6h - d/c vanco PPx GI: protonix DVT: heparin drip @12 u/kg/hr Pt seen and case reviewed with Dr. Gordon
--- NOTE | 2018-10-23 15:36 | CT ---
PROCEDURE: CT Abdomen and Pelvis without Oral or IV contrast. HISTORY: Abdominal distention COMPARISON: None available. TECHNIQUE: Contiguous axial images of the abdomen and pelvis. No oral or IV contrast administered. Coronal and Sagittal reformats generated and reviewed. Radiation dose: Total exam DLP = 333.24 mGy-cm. This CT exam was performed using one or more of the following dose reduction techniques: Automated exposure control, adjustment of the mA and/or kV according to patient size, and/or use of iterative reconstruction technique. FINDINGS: There is limited evaluation of the solid organs without the administration of IV contrast. Examination also markedly limited as a result of paucity of intra-abdominal/intrapelvic fat. Streak artifact noted predominantly involving the upper abdomen. LOWER THORAX: Moderate bilateral pleural effusions and associated consolidations. Partially imaged cardiomegaly. Small pericardial effusion. Dense coronary artery calcifications. LIVER: Unremarkable unenhanced appearance. GALLBLADDER AND BILE DUCTS: Probable vicarious excretion into the gallbladder. PANCREAS: Markedly limited due to paucity of intra-abdominal fat, lack of IV contrast, and artifact. Unremarkable unenhanced appearance. SPLEEN: Unremarkable unenhanced appearance. ADRENALS: Unremarkable unenhanced appearance. KIDNEYS AND URETERS: Contrast noted within the right renal collecting system. No hydronephrosis. No obstructing calculus identified. BLADDER: Dhaliwal catheter within the urinary bladder. Air within the urinary bladder may be secondary to recent instrumentation. REPRODUCTIVE: Uterus is present. Coarse uterine calcifications likely related to degenerating fibroids. APPENDIX: Not visualized. No secondary signs of acute appendicitis. BOWEL: The stomach is nondistended. Lack of oral contrast limits evaluation for bowel pathology. The bowel loops appear within normal limits of caliber without evidence of intestinal obstruction. Constipation. Suspect rectal impaction. Rectal wall thickening. PERITONEUM: No significant free fluid. No definite free air. LYMPH NODES: No bulky lymphadenopathy identified. VASCULATURE: Dense atherosclerotic calcification of the aorta. No aortic aneurysm. BONES: Scoliosis. OTHER FINDINGS: Soft tissue edema. IMPRESSION: Examination markedly limited as above. Contrast remains within the right renal collecting system. Correlate clinically for possibility of nephropathy. Dhaliwal catheter within the urinary bladder. Air within the urinary bladder may be secondary to recent instrumentation. Constipation. Suspect rectal impaction. Rectal wall thickening. Correlate for possibility of proctitis. Coarse uterine calcifications likely related to degenerating fibroids. Soft tissue edema. Moderate bilateral pleural effusions and associated consolidations. Partially imaged cardiomegaly. Small pericardial effusion. Dense coronary artery calcifications. Additional findings as above.
[2018-10-23] MEDS ORDERED: Iodixanol 320 MG/ML 100 ML BOTTLE IV ONE ×2 (16:33→16:35)
[2018-10-23] MEDS ORDERED: Bisacodyl 5mg EC Tab PO ONE ×2 (17:00→18:45)
[2018-10-23] MEDS ORDERED: DiphenhydrAMINE 50 mg/ml Inj ONE (17:17)
[2018-10-23] MEDS ORDERED: Sodium Chloride 0.9% 1,000 ML IV SCH (18:30)
[2018-10-24] MEDS: Piperacillin/Tazobact 3.375 GM in Sodium Chloride 100 ML IVPB SCH ×4 (03:40→22:21)
--- NOTE | 2018-10-24 04:11 | PN ---
DATE: 10/23/2018 SUBJECTIVE: The patient is an 83-year-old female. The patient was seen and examined at the bedside on 10/23/2018. Looking comfortable. Family was around. No fever, no chills. No hematuria or hematochezia. No swelling of the legs. No chest pain. No palpitation. No headache or dizziness. PHYSICAL EXAMINATION: VITAL SIGNS: Temperature 99, pulse 90, respiratory rate 21, blood pressure 99/66, and pulse oximetry 97. HEENT: Head, normocephalic and atraumatic. Eyes, PERRLA. Extraocular muscles intact. Conjunctivae clear. Nose patent. NECK: Supple. No carotid bruit, JVD, or thyromegaly. CHEST: Bilaterally symmetrical. HEART: S1, S2 positive. LUNGS: Clear to auscultation. ABDOMEN: Soft. Bowel sounds present. No organomegaly. EXTREMITIES: No edema. No cyanosis. NEUROLOGIC: The patient is awake, alert, follows simple commands. MEDICATIONS: Aspirin, Plavix, Colace, Lasix, piperacillin, heparin, Crestor, and vitamin A. LABORATORIES: White blood cell 12, hemoglobin 11.3, hematocrit 33.9, platelets 204. Sodium 142, potassium 4.1, BUN 36, creatinine 0.9, GFR more than 60. ASSESSMENT AND PLAN: Ms. Georgina Reagan is an 83-year-old female with multiple comorbids with past medical history of acute on chronic respiratory failure, likely secondary to heart failure. The patient is in [id number] myocardial infarction and developed . Planned for catheterization today by Dr. Soto. Dr. Soto spoke to the family. The patient had [id number] myocardial infarction CT angiogram. No pleural effusion, cardiomegaly, or pulmonary venous congestion. Maintained normotensive. Aspirin, Plavix, Lasix. Repeat laboratories. Gastrointestinal and deep venous thrombosis prophylaxis. We will follow up. Erika Fontaine MD [facility]
[2018-10-24 05:36] LABS: BASO % 0.5 % (0.0-2.0); EOS # 0.1 K/uL (0.0-0.7); EOS % 1.5 % (0.0-4.0); LYMPH # 1.6 K/uL (1.0-4.3); LYMPH % 18.5 % (20.0-40.0); MEAN CELL VOLUME 96.3 fL (81.0-99.0); MEAN CORPUSCULAR HEMOGLOBIN 32.9 pg (27.0-31.0); MEAN CORPUSCULAR HGB CONC 34.2 g/dL (33.0-37.0); MEAN PLATELET VOLUME 9.3 fL (7.2-11.7); MONO # 0.6 K/uL (0.0-0.8); MONO % 6.8 % (0.0-10.0); NEUT # 6.3 K/uL (1.8-7.0); NEUT % 72.7 % (50.0-75.0); RBC 3.33 Mil/uL (3.80-5.20); RED CELL DISTRIBUTION WIDTH 12.9 % (11.5-14.5); WHITE BLOOD COUNT 8.7 K/uL (4.8-10.8)
[2018-10-24 06:05] LABS: ALB/GLOB RATIO 1.2 (1.0-2.1); ALT/SGPT 60 U/L (9-52); AST/SGOT 47 U/L (14-36); BLOOD UREA NITROGEN 33 mg/dL (7-17); GFR NON-AFRICAN AMERICAN 53
[2018-10-24] MEDS ORDERED: Benzocaine/Menthol (Cepacol) Lozenge MT PRN (09:07)
[2018-10-24] MEDS: Vitamins A & D Oint UD Foilpak TOP PRN (09:28)
[2018-10-24] MEDS ORDERED: Enoxaparin 60 mg Syringe SC SCH (10:00)
--- NOTE | 2018-10-24 10:10 | CP.CCUPN ---
<Kal Zamora - Last Filed: 10/24/18 10:12> CCU Subjective - Physician Review Subjective (Free Text): 10/23/18 14:23 Kal Zamora PGY1 Progress note for Dr. Gordon Pt was examined at bedside this morning. She reports improvement of her shortness of breath. She reports some confusion when she woke up this morning, she felt disoriented. She denies any headache, dizziness, chest pain, abdominal pain, nausea, vomiting, diarrhea, dysuria. 10/24/18 10:09 Kal Zamora PGY1 Progress note for Dr. Gutierrez Pt was examined at bedside this morning. Pt is DNR at this time, family does not wish to proceed with intervention. Pt is stable for transfer to [facility]. 10/24/18 10:11 CCU Objective - Vital Signs / Intake & Output Vital Signs (Last 4 hours): Vital Signs Pulse Resp BP Pulse Ox 10/24/18 09:30 94/57 L 10/24/18 07:54 63 16 90/50 L 98 10/24/18 07:00 79 21 98 10/24/18 06:54 75 18 106/63 96 Intake and Output (Last 8hrs): Intake & Output 10/23/18 10/24/18 10/24/18 22:59 06:59 14:59 Intake Total 435.6 278.4 7.6 Output Total 550 875 Balance -114.4 -596.6 7.6 Weight 121 lb 8 oz Intake: Intake, IV Amount 45.6 278.4 7.6 Left Forearm 7.6 Left Wrist 45.6 60.8 7.6 Right Forearm 210 Oral 390 Output: Urine 550 875 Urethral (Dhaliwal) 550 875 Other: # Bowel Movements 0 0 - Physical Exam Head: Positive for: Atraumatic, Normocephalic Pupils: Positive for: PERRL Extroacular Muscles: Positive for: EOMI Conjunctiva: Positive for: Normal Mouth: Positive for: Moist Mucous Membranes Neck: Positive for: Normal Range of Motion Respiratory/Chest: Positive for: Clear to Auscultation, Good Air Exchange. Negative for: Respiratory Distress, Accessory Muscle Use, Wheezes, Rales, Rh onchi Cardiovascular: Positive for: Regular Rate and Rhythm, Normal S1, S2 Abdomen: Positive for: Normal Bowel Sounds. Negative for: Tenderness, Dist ention, Peritoneal Signs, Rebound, Guarding Upper Extremity: Positive for: Normal Inspection. Negative for: Cyanosis, Edema Lower Extremity: Positive for: Normal Inspection, Edema. Negative for: CALF TENDERNESS, Erythema Neurological: Positive for: GCS=15, CN II-XII Intact, Speech Normal Skin: Positive for: Warm, Dry, Normal Color. Negative for: Rashes Psychiatric: Positive for: Alert, Oriented x 3 - Medications Active Medications: Active Medications Generic Name Dose Route Start Last Admin Trade Name Freq PRN Reason Stop Dose Admin Aspirin 81 mg 10/22/18 10:00 10/24/18 09:27 Aspirin Chewable PO 81 mg DAILY ISAIAS Administration Benzocaine/Menthol 1 stalin 10/24/18 09:07 Cepacol Sore Throat MT Q4 PRN Sore Throat Clopidogrel Bisulfate 75 mg 10/22/18 10:00 10/24/18 09:28 Plavix PO 75 mg DAILY ISAIAS Administration Docusate Sodium 100 mg 10/23/18 14:00 10/24/18 09:27 Colace PO 100 mg TID ISAIAS Administration Enoxaparin Sodium 55 mg 10/24/18 10:00 Lovenox SC Q12 ISAIAS Famotidine 20 mg 10/24/18 10:00 10/24/18 09:42 Pepcid PO 20 mg DAILY ISAIAS Administration Furosemide 20 mg 10/24/18 10:00 10/24/18 09:30 Lasix IVP 20 mg DAILY ISAIAS Administration Piperacillin Sod/Tazobactam 100 mls @ 200 mls/hr 10/22/18 04:00 10/24/18 09:28 Sod 3.375 gm/ Sodium Chloride IVPB 200 mls/hr Q6H ISAIAS Administration Protocol Metoprolol Succinate 12.5 mg 10/24/18 10:00 Toprol Xl PO DAILY ISAIAS Rosuvastatin Calcium 20 mg 10/22/18 04:00 10/23/18 21:12 Crestor PO 20 mg HS ISAIAS Administration Vitamin A 1 ea 10/23/18 10:56 10/24/18 09:28 Vitamin A & D Oint Ud Foilpak TOP 1 ea Q4H PRN Administration Dry skin - Patient Studies Lab Studies: Microbiology Studies 10/22/18 02:05 MRSA Culture (Admit) - Final Nose MRSA NOT DETECTED 10/21/18 20:50 Blood Culture - Preliminary Blood NO GROWTH AFTER 48 HOURS 10/21/18 21:30 Blood Culture - Preliminary Blood NO GROWTH AFTER 48 HOURS 10/22/18 10:21 Urine Culture - Final Urine,Catheterized Gram Positive Cocci 10/22/18 04:55 Urine Culture - Final Urine Gram Positive Cocci Lab Studies 10/24/18 10/24/18 10/24/18 Range/Units 05:26 05:25 05:25 WBC 8.7 (4.8-10.8) K/uL RBC 3.33 L (3.80-5.20) Mil/uL Hgb 11.0 (11.0-16.0) g/dL Hct 32.1 L (34.0-47.0) % MCV 96.3 (81.0-99.0) fL MCH 32.9 H (27.0-31.0) pg MCHC 34.2 (33.0-37.0) g/dL RDW 12.9 (11.5-14.5) % Plt Count 189 (130-400) K/uL MPV 9.3 (7.2-11.7) fL Neut % (Auto) 72.7 (50.0-75.0) % Lymph % (Auto) 18.5 L (20.0-40.0) % Real % (Auto) 6.8 (0.0-10.0) % Eos % (Auto) 1.5 (0.0-4.0) % Baso % (Auto) 0.5 (0.0-2.0) % Neut # (Auto) 6.3 (1.8-7.0) K/uL Lymph # (Auto) 1.6 (1.0-4.3) K/uL Real # (Auto) 0.6 (0.0-0.8) K/uL Eos # (Auto) 0.1 (0.0-0.7) K/uL Baso # (Auto) 0.0 (0.0-0.2) K/uL APTT 46 H (21-34) SECONDS Sodium 140 (132-148) mmol/L Potassium 2.7 L (3.6-5.2) mmol/L Chloride 105 (98-107) mmol/L Carbon Dioxide 28 (22-30) mmol/L Anion Gap 10 (10-20) BUN 33 H (7-17) mg/dL Creatinine 1.0 (0.7-1.2) mg/dL Est GFR ( Amer) > 60 Est GFR (Non-Af Amer) 53 POC Glucose (mg/dL) (65-110) mg/dL Random Glucose 104 (65-105) mg/dL Calcium 8.0 L (8.6-10.4) mg/dl Phosphorus 4.1 (2.5-4.5) mg/dL Magnesium 1.9 (1.6-2.3) mg/dL Total Bilirubin 0.4 (0.2-1.3) mg/dL AST 47 H D (14-36) U/L ALT 60 H D (9-52) U/L Alkaline Phosphatase 59 (38-126) U/L Troponin I (0.00-0.120) ng/mL Total Protein 5.6 L (6.3-8.3) g/dL Albumin 3.0 L D (3.5-5.0) g/dL Globulin 2.6 (2.2-3.9) gm/dL Albumin/Globulin Ratio 1.2 (1.0-2.1) 10/23/18 10/23/18 10/23/18 Range/Units 21:52 18:10 16:08 WBC (4.8-10.8) K/uL RBC (3.80-5.20) Mil/uL Hgb (11.0-16.0) g/dL Hct (34.0-47.0) % MCV (81.0-99.0) fL MCH (27.0-31.0) pg MCHC (33.0-37.0) g/dL RDW (11.5-14.5) % Plt Count (130-400) K/uL MPV (7.2-11.7) fL Neut % (Auto) (50.0-75.0) % Lymph % (Auto) (20.0-40.0) % Real % (Auto) (0.0-10.0) % Eos % (Auto) (0.0-4.0) % Baso % (Auto) (0.0-2.0) % Neut # (Auto) (1.8-7.0) K/uL Lymph # (Auto) (1.0-4.3) K/uL Real # (Auto) (0.0-0.8) K/uL Eos # (Auto) (0.0-0.7) K/uL Baso # (Auto) (0.0-0.2) K/uL APTT 47 H D 52 H D (21-34) SECONDS Sodium (132-148) mmol/L Potassium (3.6-5.2) mmol/L Chloride (98-107) mmol/L Carbon Dioxide (22-30) mmol/L Anion Gap (10-20) BUN (7-17) mg/dL Creatinine (0.7-1.2) mg/dL Est GFR ( Amer) Est GFR (Non-Af Amer) POC Glucose (mg/dL) 80 (65-110) mg/dL Random Glucose (65-105) mg/dL Calcium (8.6-10.4) mg/dl Phosphorus (2.5-4.5) mg/dL Magnesium (1.6-2.3) mg/dL Total Bilirubin (0.2-1.3) mg/dL AST (14-36) U/L ALT (9-52) U/L Alkaline Phosphatase (38-126) U/L Troponin I (0.00-0.120) ng/mL Total Protein (6.3-8.3) g/dL Albumin (3.5-5.0) g/dL Globulin (2.2-3.9) gm/dL Albumin/Globulin Ratio (1.0-2.1) 10/23/18 10/23/18 Range/Units 11:05 06:16 WBC (4.8-10.8) K/uL RBC (3.80-5.20) Mil/uL Hgb (11.0-16.0) g/dL Hct (34.0-47.0) % MCV (81.0-99.0) fL MCH (27.0-31.0) pg MCHC (33.0-37.0) g/dL RDW (11.5-14.5) % Plt Count (130-400) K/uL MPV (7.2-11.7) fL Neut % (Auto) (50.0-75.0) % Lymph % (Auto) (20.0-40.0) % Real % (Auto) (0.0-10.0) % Eos % (Auto) (0.0-4.0) % Baso % (Auto) (0.0-2.0) % Neut # (Auto) (1.8-7.0) K/uL Lymph # (Auto) (1.0-4.3) K/uL Real # (Auto) (0.0-0.8) K/uL Eos # (Auto) (0.0-0.7) K/uL Baso # (Auto) (0.0-0.2) K/uL APTT (21-34) SECONDS Sodium (132-148) mmol/L Potassium (3.6-5.2) mmol/L Chloride (98-107) mmol/L Carbon Dioxide (22-30) mmol/L Anion Gap (10-20) BUN (7-17) mg/dL Creatinine (0.7-1.2) mg/dL Est GFR ( Amer) Est GFR (Non-Af Amer) POC Glucose (mg/dL) 128 H (65-110) mg/dL Random Glucose (65-105) mg/dL Calcium (8.6-10.4) mg/dl Phosphorus (2.5-4.5) mg/dL Magnesium (1.6-2.3) mg/dL Total Bilirubin (0.2-1.3) mg/dL AST (14-36) U/L ALT (9-52) U/L Alkaline Phosphatase (38-126) U/L Troponin I 2.0700 H* (0.00-0.120) ng/mL Total Protein (6.3-8.3) g/dL Albumin (3.5-5.0) g/dL Globulin (2.2-3.9) gm/dL Albumin/Globulin Ratio (1.0-2.1) Laboratory Results - last 24 hr 10/23/18 10/23/18 10/23/18 06:16 11:05 16:08 WBC RBC Hgb Hct MCV MCH MCHC RDW Plt Count MPV Neut % (Auto) Lymph % (Auto) Real % (Auto) Eos % (Auto) Baso % (Auto) Neut # (Auto) Lymph # (Auto) Real # (Auto) Eos # (Auto) Baso # (Auto) APTT 52 H D Sodium Potassium Chloride Carbon Dioxide Anion Gap BUN Creatinine Est GFR ( Amer) Est GFR (Non-Af Amer) POC Glucose (mg/dL) 128 H Random Glucose Calcium Phosphorus Magnesium Total Bilirubin AST ALT Alkaline Phosphatase Troponin I 2.0700 H* Total Protein Albumin Globulin Albumin/Globulin Ratio 10/23/18 10/23/18 10/24/18 18:10 21:52 05:25 WBC 8.7 RBC 3.33 L Hgb 11.0 Hct 32.1 L MCV 96.3 MCH 32.9 H MCHC 34.2 RDW 12.9 Plt Count 189 MPV 9.3 Neut % (Auto) 72.7 Lymph % (Auto) 18.5 L Real % (Auto) 6.8 Eos % (Auto) 1.5 Baso % (Auto) 0.5 Neut # (Auto) 6.3 Lymph # (Auto) 1.6 Real # (Auto) 0.6 Eos # (Auto) 0.1 Baso # (Auto) 0.0 APTT 47 H D Sodium Potassium Chloride Carbon Dioxide Anion Gap BUN Creatinine Est GFR ( Amer) Est GFR (Non-Af Amer) POC Glucose (mg/dL) 80 Random Glucose Calcium Phosphorus Magnesium Total Bilirubin AST ALT Alkaline Phosphatase Troponin I Total Protein Albumin Globulin Albumin/Globulin Ratio 10/24/18 10/24/18 05:25 05:26 WBC RBC Hgb Hct MCV MCH MCHC RDW Plt Count MPV Neut % (Auto) Lymph % (Auto) Real % (Auto) Eos % (Auto) Baso % (Auto) Neut # (Auto) Lymph # (Auto) Real # (Auto) Eos # (Auto) Baso # (Auto) APTT 46 H Sodium 140 Potassium 2.7 L Chloride 105 Carbon Dioxide 28 Anion Gap 10 BUN 33 H Creatinine 1.0 Est GFR ( Amer) > 60 Est GFR (Non-Af Amer) 53 POC Glucose (mg/dL) Random Glucose 104 Calcium 8.0 L Phosphorus 4.1 Magnesium 1.9 Total Bilirubin 0.4 AST 47 H D ALT 60 H D Alkaline Phosphatase 59 Troponin I Total Protein 5.6 L Albumin 3.0 L D Globulin 2.6 Albumin/Globulin Ratio 1.2 Fingerstick Blood Sugar Results: 188 Critical Care Progress Note - Nutrition Nutrition: Nutrition Category Date Time Status Heart Healthy Diet [DIET] Diets 10/23/18 Dinner Active <Myron Gutierrez S - Last Filed: 10/24/18 18:28> CCU Subjective - Physician Review Critical Care Time Spent (in minutes): 35 CCU Objective - Vital Signs / Intake & Output Vital Signs (Last 4 hours): Vital Signs Pulse Resp BP Pulse Ox 10/24/18 17:02 89 17 87/53 L 98 10/24/18 16:02 91 H 20 80/59 L 97 10/24/18 15:02 85 23 84/54 L 96 Intake and Output (Last 8hrs): Intake & Output 10/24/18 10/24/18 10/24/18 06:59 14:59 22:59 Intake Total 278.4 372.8 Output Total 875 550 Balance -596.6 -177.2 Weight 121 lb 8 oz Intake: Intake, IV Amount 278.4 72.8 Left Forearm 7.6 Left Wrist 60.8 72.8 Right Forearm 210 Oral 300 Output: Urine 875 550 Urethral (Dhaliwal) 875 550 Other: # Bowel Movements 0 - Medications Active Medications: Active Medications Generic Name Dose Route Start Last Admin Trade Name Freq PRN Reason Stop Dose Admin Aspirin 81 mg 10/22/18 10:00 10/24/18 09:27 Aspirin Chewable PO 81 mg DAILY ISAIAS Administration Benzocaine/Menthol 1 stalin 10/24/18 09:07 Cepacol Sore Throat MT Q4 PRN Sore Throat Bisacodyl 5 mg 10/24/18 13:17 Dulcolax PO Q12H PRN Constipation Clopidogrel Bisulfate 75 mg 10/22/18 10:00 10/24/18 09:28 Plavix PO 75 mg DAILY ISAIAS Administration Docusate Sodium 100 mg 10/23/18 14:00 10/24/18 13:58 Colace PO 100 mg TID ISAIAS Administration Enoxaparin Sodium 55 mg 10/24/18 10:00 10/24/18 12:05 Lovenox SC 55 mg Q12 ISAIAS Administration Famotidine 20 mg 10/24/18 10:00 10/24/18 09:42 Pepcid PO 20 mg DAILY ISAIAS Administration Furosemide 20 mg 10/24/18 10:00 10/24/18 09:30 Lasix IVP 20 mg DAILY ISAIAS Administration Piperacillin Sod/Tazobactam 100 mls @ 200 mls/hr 10/22/18 04:00 10/24/18 16:43 Sod 3.375 gm/ Sodium Chloride IVPB 200 mls/hr Q6H ISAIAS Administration Protocol Metoprolol Succinate 12.5 mg 10/24/18 10:00 10/24/18 11:04 Toprol Xl PO Not Given DAILY ISAIAS Rosuvastatin Calcium 20 mg 10/22/18 04:00 10/23/18 21:12 Crestor PO 20 mg HS ISAIAS Administration Vitamin A 1 ea 10/23/18 10:56 10/24/18 09:28 Vitamin A & D Oint Ud Foilpak TOP 1 ea Q4H PRN Administration Dry skin - Patient Studies Lab Studies: Microbiology Studies 10/22/18 02:05 MRSA Culture (Admit) - Final Nose MRSA NOT DETECTED 10/21/18 20:50 Blood Culture - Preliminary Blood NO GROWTH AFTER 48 HOURS 10/21/18 21:30 Blood Culture - Preliminary Blood NO GROWTH AFTER 48 HOURS 10/22/18 10:21 Urine Culture - Final Urine,Catheterized Gram Positive Cocci 10/22/18 04:55 Urine Culture - Final Urine Gram Positive Cocci Lab Studies 10/24/18 10/24/18 10/24/18 Range/Units 05:26 05:25 05:25 WBC 8.7 (4.8-10.8) K/uL RBC 3.33 L (3.80-5.20) Mil/uL Hgb 11.0 (11.0-16.0) g/dL Hct 32.1 L (34.0-47.0) % MCV 96.3 (81.0-99.0) fL MCH 32.9 H (27.0-31.0) pg MCHC 34.2 (33.0-37.0) g/dL RDW 12.9 (11.5-14.5) % Plt Count 189 (130-400) K/uL MPV 9.3 (7.2-11.7) fL Neut % (Auto) 72.7 (50.0-75.0) % Lymph % (Auto) 18.5 L (20.0-40.0) % Real % (Auto) 6.8 (0.0-10.0) % Eos % (Auto) 1.5 (0.0-4.0) % Baso % (Auto) 0.5 (0.0-2.0) % Neut # (Auto) 6.3 (1.8-7.0) K/uL Lymph # (Auto) 1.6 (1.0-4.3) K/uL Real # (Auto) 0.6 (0.0-0.8) K/uL Eos # (Auto) 0.1 (0.0-0.7) K/uL Baso # (Auto) 0.0 (0.0-0.2) K/uL APTT 46 H (21-34) SECONDS Sodium 140 (132-148) mmol/L Potassium 2.7 L (3.6-5.2) mmol/L Chloride 105 (98-107) mmol/L Carbon Dioxide 28 (22-30) mmol/L Anion Gap 10 (10-20) BUN 33 H (7-17) mg/dL Creatinine 1.0 (0.7-1.2) mg/dL Est GFR ( Amer) > 60 Est GFR (Non-Af Amer) 53 Random Glucose 104 (65-105) mg/dL Calcium 8.0 L (8.6-10.4) mg/dl Phosphorus 4.1 (2.5-4.5) mg/dL Magnesium 1.9 (1.6-2.3) mg/dL Total Bilirubin 0.4 (0.2-1.3) mg/dL AST 47 H D (14-36) U/L ALT 60 H D (9-52) U/L Alkaline Phosphatase 59 (38-126) U/L Total Protein 5.6 L (6.3-8.3) g/dL Albumin 3.0 L D (3.5-5.0) g/dL Globulin 2.6 (2.2-3.9) gm/dL Albumin/Globulin Ratio 1.2 (1.0-2.1) Proteinase 3 (PR3) (<1.0) AI Myeloperoxidase Ab (<1.0) AI 10/23/18 10/22/18 Range/Units 21:52 08:36 WBC (4.8-10.8) K/uL RBC (3.80-5.20) Mil/uL Hgb (11.0-16.0) g/dL Hct (34.0-47.0) % MCV (81.0-99.0) fL MCH (27.0-31.0) pg MCHC (33.0-37.0) g/dL RDW (11.5-14.5) % Plt Count (130-400) K/uL MPV (7.2-11.7) fL Neut % (Auto) (50.0-75.0) % Lymph % (Auto) (20.0-40.0) % Real % (Auto) (0.0-10.0) % Eos % (Auto) (0.0-4.0) % Baso % (Auto) (0.0-2.0) % Neut # (Auto) (1.8-7.0) K/uL Lymph # (Auto) (1.0-4.3) K/uL Real # (Auto) (0.0-0.8) K/uL Eos # (Auto) (0.0-0.7) K/uL Baso # (Auto) (0.0-0.2) K/uL APTT 47 H D (21-34) SECONDS Sodium (132-148) mmol/L Potassium (3.6-5.2) mmol/L Chloride (98-107) mmol/L Carbon Dioxide (22-30) mmol/L Anion Gap (10-20) BUN (7-17) mg/dL Creatinine (0.7-1.2) mg/dL Est GFR ( Amer) Est GFR (Non-Af Amer) Random Glucose (65-105) mg/dL Calcium (8.6-10.4) mg/dl Phosphorus (2.5-4.5) mg/dL Magnesium (1.6-2.3) mg/dL Total Bilirubin (0.2-1.3) mg/dL AST (14-36) U/L ALT (9-52) U/L Alkaline Phosphatase (38-126) U/L Total Protein (6.3-8.3) g/dL Albumin (3.5-5.0) g/dL Globulin (2.2-3.9) gm/dL Albumin/Globulin Ratio (1.0-2.1) Proteinase 3 (PR3) <1.0 (<1.0) AI Myeloperoxidase Ab <1.0 (<1.0) AI Laboratory Results - last 24 hr 10/22/18 10/23/18 10/24/18 08:36 21:52 05:25 WBC 8.7 RBC 3.33 L Hgb 11.0 Hct 32.1 L MCV 96.3 MCH 32.9 H MCHC 34.2 RDW 12.9 Plt Count 189 MPV 9.3 Neut % (Auto) 72.7 Lymph % (Auto) 18.5 L Real % (Auto) 6.8 Eos % (Auto) 1.5 Baso % (Auto) 0.5 Neut # (Auto) 6.3 Lymph # (Auto) 1.6 Real # (Auto) 0.6 Eos # (Auto) 0.1 Baso # (Auto) 0.0 APTT 47 H D Sodium Potassium Chloride Carbon Dioxide Anion Gap BUN Creatinine Est GFR ( Amer) Est GFR (Non-Af Amer) Random Glucose Calcium Phosphorus Magnesium Total Bilirubin AST ALT Alkaline Phosphatase Total Protein Albumin Globulin Albumin/Globulin Ratio Proteinase 3 (PR3) <1.0 Myeloperoxidase Ab <1.0 10/24/18 10/24/18 05:25 05:26 WBC RBC Hgb Hct MCV MCH MCHC RDW Plt Count MPV Neut % (Auto) Lymph % (Auto) Real % (Auto) Eos % (Auto) Baso % (Auto) Neut # (Auto) Lymph # (Auto) Real # (Auto) Eos # (Auto) Baso # (Auto) APTT 46 H Sodium 140 Potassium 2.7 L Chloride 105 Carbon Dioxide 28 Anion Gap 10 BUN 33 H Creatinine 1.0 Est GFR ( Amer) > 60 Est GFR (Non-Af Amer) 53 Random Glucose 104 Calcium 8.0 L Phosphorus 4.1 Magnesium 1.9 Total Bilirubin 0.4 AST 47 H D ALT 60 H D Alkaline Phosphatase 59 Total Protein 5.6 L Albumin 3.0 L D Globulin 2.6 Albumin/Globulin Ratio 1.2 Proteinase 3 (PR3) Myeloperoxidase Ab Critical Care Progress Note - Nutrition Nutrition: Nutrition Category Date Time Status Heart Healthy Diet [DIET] Diets 10/23/18 Dinner Active Attending/Attestation - Attestation I have personally seen and examined this patient.: Yes I have fully participated in the care of the patient.: Yes I have reviewed all pertinent clinical information: Yes Notes (Text): 10/24/18 18:25 patient seen and examined in the intensive care unit. status post cardiac cath and on medical management Case discussed with family at length Patient DNR DNI Transfer to floor
--- NOTE | 2018-10-24 10:53 | CP.PCM.CON ---
History of Present Illness - History of Present Illness History of Present Illness: Palliative consult requested by Mohan SIMPSON for goals of care discussion Patient is a 83 yo lady admitted from home with SOB. patient reported her breathing was getting progressively worse over the last 4 months. Patient was given Neb Tx on the field . CXR upon admission was significant for pleural effusion and venous congestion. Lasix started. Troponin was elevated. Cardiac consult called for diagnosis of NON STEMI. Plavix and Heparin on board. The urine culture positive Gram + Cocci, Zosyn IV started. Patient made DNR as per verbal request from patient's niece. PMH: Denied, patient has been using Herbal medicine only and has not seen Doctor Soc. Hx: single, lives with male friend, has two nieces out of State, Hx of years of smoking Fam. Hx: denied Review of Systems - Constitutional Constitutional: Weakness - EENT Eyes: absent: As Per HPI, Blind Spots, Blurred Vision, Change in Vision, Decreased Night Vision, Diplopia, Discharge, Dry Eye, Exophthalmos, Floaters, Irritation, Itchy Eyes, Loss of Peripheral Vision, Pain, Photophobia, Requires Corrective Lenses, Sees Flashes, Spots in Vision, Tunnel Vision, Other Visual Disturbances, Loss of Vision, Other Ears: Decreased Hearing Nose/Mouth/Throat: absent: As Per HPI, Epistaxis, Nasal Congestion, Nasal Discha rge, Nasal Obstruction, Nasal Trauma, Nose Pain, Post Nasal Drip, Sinus Pain, Sinus Pressure, Bleeding Gums, Change in Voice, Dental Pain, Dry Mouth, Dysphagia, Halitosis, Hoarsness, Lip Swelling, Mouth Lesions, Mouth Pain, Odynophagia, Sore Throat, Throat Swelling, Tongue Swelling, Facial Pain, Neck Pain, Neck Mass, Other - Breasts Breasts: absent: As Per HPI, Change in Shape, Mass, Pain, Nipple Discharge, Nipple Inversion, Skin Changes, Swelling, Other - Cardiovascular Cardiovascular: Dyspnea, Dyspnea on Exertion - Respiratory Respiratory: Dyspnea on Exertion - Gastrointestinal Gastrointestinal: Change in Bowel Habits - Genitourinary Genitourinary: absent: As Per HPI, Change in Urinary Stream, Difficulty Urinating, Dysuria, Flank Pain, Hematuria, Pyuria, Nocturia, Urinary Incontinence, Urinary Frequency, Urinary Hesitance, Urinary Urgency, Voiding Freq/Small Amts, Freq UTI, Hx Renal/Bladder Calculi, Hx /Renal Surgery, Bladder Distension, Other - Reproductive: Female Reproductive:Female: Post Menopausal - Menstruation Menstruation: Post Menopausal - Musculoskeletal Musculoskeletal: Abnormal Gait, Arthralgias, Limited Range of Motion - Integumentary Integumentary: absent: As Per HPI, Acne, Alopecia, Bleeding Lesions, Change in Hair, Change in Nails, Change in Pigmentation, Changing Lesions, Dry Skin, Erythema, Furuncle, Hirsutism, Lesions, New Lesions, Non-Healing Lesions, Photosensitivity, Pruritus, Rash, Skin Pain, Skin Ulcer, Sores, Striae, Swelling, Unusual Bruising, Wounds, Jaundice, Other - Neurological Neurological: Abnormal Hearing, Confusion, Weakness - Psychiatric Psychiatric: Confusion, Difficulty Concentrating - Endocrine Endocrine: absent: As Per HPI, Change in Body Appearance, Change in Libido, Cold Intolorance, Deepening of Voice, Excessive Sweating, Fatigue, Flushing, Heat Intolorance, Increase in Ring/Shoe/Hat Size, Palpitations, Polydipsia, Polyphagia, Polyuria, Other - Hematologic/Lymphatic Hematologic: absent: As Per HPI, Easy Bleeding, Easy Bruising, Lymphadenopathy, Other Past Patient History - Infectious Disease Hx of Infectious Diseases: None - Tetanus Immunizations Tetanus Immunization: Unknown - Past Medical History & Family History Past Medical History?: Yes Past Family History: Reviewed and not pertinent - Past Social History Smoking Status: Never Smoked - MUSCULOSKELETAL/RHEUMATOLOGICAL Hx Falls: No - PSYCHIATRIC Hx Substance Use: No - SURGICAL HISTORY Hx Surgeries: No - ANESTHESIA Hx Anesthesia: No Meds Allergies/Adverse Reactions: Allergies Allergy/AdvReac Type Severity Reaction Status Date / Time No Known Allergies Allergy Verified 10/21/18 21:29 - Medications Medications: Current Medications Aspirin (Aspirin Chewable) 81 mg PO DAILY [facility] Last Admin: 10/24/18 09:27 Dose: 81 mg Benzocaine/Menthol (Cepacol Sore Throat) 1 stalin MT Q4 PRN PRN Reason: Sore Throat Clopidogrel Bisulfate (Plavix) 75 mg PO DAILY [facility] Last Admin: 10/24/18 09:28 Dose: 75 mg Docusate Sodium (Colace) 100 mg PO TID [facility] Last Admin: 10/24/18 09:27 Dose: 100 mg Enoxaparin Sodium (Lovenox) 55 mg SC Q12 [facility] Famotidine (Pepcid) 20 mg PO DAILY [facility] Last Admin: 10/24/18 09:42 Dose: 20 mg Furosemide (Lasix) 20 mg IVP DAILY [facility] Last Admin: 10/24/18 09:30 Dose: 20 mg Piperacillin Sod/Tazobactam (Sod 3.375 gm/ Sodium Chloride) 100 mls @ 200 mls/hr IVPB Q6H [facility]; Protocol Last Admin: 10/24/18 09:28 Dose: 200 mls/hr Metoprolol Succinate (Toprol Xl) 12.5 mg PO DAILY [facility] Rosuvastatin Calcium (Crestor) 20 mg PO HS [facility] Last Admin: 10/23/18 21:12 Dose: 20 mg Vitamin A (Vitamin A & D Oint Ud Foilpak) 1 ea TOP Q4H PRN PRN Reason: Dry skin Last Admin: 10/24/18 09:28 Dose: 1 ea Physical Exam - Constitutional Appears: Chronically Ill - Head Exam Head Exam: ATRAUMATIC, NORMAL INSPECTION, NORMOCEPHALIC - Eye Exam Eye Exam: EOMI, Normal appearance, PERRL Pupil Exam: NORMAL ACCOMODATION, PERRL - ENT Exam ENT Exam: Mucous Membranes Moist, Normal Exam - Neck Exam Neck exam: Positive for: Normal Inspection - Respiratory Exam Respiratory Exam: Decreased Breath Sounds, Prolonged Expiratory Phase, NORMAL BREATHING PATTERN - Cardiovascular Exam Additional comments: Hypotension - GI/Abdominal Exam GI & Abdominal Exam: Normal Bowel Sounds, Soft - Rectal Exam Rectal Exam: Deferred - Extremities Exam Extremities exam: Positive for: normal inspection, pedal edema - Back Exam Back exam: NORMAL INSPECTION - Neurological Exam Neurological exam: Abnormal Gait, Alert - Psychiatric Exam Psychiatric exam: Anxious - Skin Skin Exam: Dry, Intact, Normal Color, Warm Results - Vital Signs Recent Vital Signs: Last Vital Signs Temp 97.8 F 10/24/18 04:00 Pulse 63 10/24/18 07:54 Resp 16 10/24/18 07:54 BP 94/57 L 10/24/18 09:30 Pulse Ox 98 10/24/18 07:54 - Labs Result Diagrams: 10/24/18 05:25 10/24/18 05:26 Labs: Laboratory Results - last 24 hr 10/23/18 10/23/18 10/23/18 06:16 11:05 16:08 WBC RBC Hgb Hct MCV MCH MCHC RDW Plt Count MPV Neut % (Auto) Lymph % (Auto) Bowman % (Auto) Eos % (Auto) Baso % (Auto) Neut # (Auto) Lymph # (Auto) Bowman # (Auto) Eos # (Auto) Baso # (Auto) APTT 52 H D Sodium Potassium Chloride Carbon Dioxide Anion Gap BUN Creatinine Est GFR ( Amer) Est GFR (Non-Af Amer) POC Glucose (mg/dL) 128 H Random Glucose Calcium Phosphorus Magnesium Total Bilirubin AST ALT Alkaline Phosphatase Troponin I 2.0700 H* Total Protein Albumin Globulin Albumin/Globulin Ratio 10/23/18 10/23/18 10/24/18 18:10 21:52 05:25 WBC 8.7 RBC 3.33 L Hgb 11.0 Hct 32.1 L MCV 96.3 MCH 32.9 H MCHC 34.2 RDW 12.9 Plt Count 189 MPV 9.3 Neut % (Auto) 72.7 Lymph % (Auto) 18.5 L Bowman % (Auto) 6.8 Eos % (Auto) 1.5 Baso % (Auto) 0.5 Neut # (Auto) 6.3 Lymph # (Auto) 1.6 Bowman # (Auto) 0.6 Eos # (Auto) 0.1 Baso # (Auto) 0.0 APTT 47 H D Sodium Potassium Chloride Carbon Dioxide Anion Gap BUN Creatinine Est GFR ( Amer) Est GFR (Non-Af Amer) POC Glucose (mg/dL) 80 Random Glucose Calcium Phosphorus Magnesium Total Bilirubin AST ALT Alkaline Phosphatase Troponin I Total Protein Albumin Globulin Albumin/Globulin Ratio 10/24/18 10/24/18 05:25 05:26 WBC RBC Hgb Hct MCV MCH MCHC RDW Plt Count MPV Neut % (Auto) Lymph % (Auto) Bowman % (Auto) Eos % (Auto) Baso % (Auto) Neut # (Auto) Lymph # (Auto) Bowman # (Auto) Eos # (Auto) Baso # (Auto) APTT 46 H Sodium 140 Potassium 2.7 L Chloride 105 Carbon Dioxide 28 Anion Gap 10 BUN 33 H Creatinine 1.0 Est GFR ( Amer) > 60 Est GFR (Non-Af Amer) 53 POC Glucose (mg/dL) Random Glucose 104 Calcium 8.0 L Phosphorus 4.1 Magnesium 1.9 Total Bilirubin 0.4 AST 47 H D ALT 60 H D Alkaline Phosphatase 59 Troponin I Total Protein 5.6 L Albumin 3.0 L D Globulin 2.6 Albumin/Globulin Ratio 1.2 Assessment & Plan - Assessment and Plan (Free Text) Assessment: Palliative consult DNR, there is no Advance directive on chart, PPS 40% I reviewed Medical records, all diagnostic studies, examined and interviewed patient in the chair Patient is alert, oriented X 3 with mild confusion and difficulties concentrating. Patient admits to decreased hearing. Breathing is much improved, denies SOB. BP 94/57, O2Sat 98 % WBC 8.7, down from 12.0, Hb 110., K dropped to 2.7 most likely due to Lasix IV Goals of care discussed with patient. Patient admits feeling uncomfortable in this setting as she never had been at the hospital. Patient feels uncomfortable when examined and when needs to use commode. Patient admits to be holding her BMs due to fear of " embarrassment", in front of people. Idiscussed the need for regular BMs with her and reassured her of our ability to provide privacy. Code status discussed. Patient was able to verbalize her feelings about being old and unable to do things she used to. Patient values independence and quality of life. I questioned her about resuscitation. Patient admited not being able to understand the whole meaning about it but was positive she would not want to be kept alive " by the machines'. I spoke over the phone with patient's niece Desire about patient's wishes for the end oflife care. Desire confirmed that patient always wished for natural and was against CPR and Intubation. Desire was on her way from [place] to visint the patient. We agreed to meet tomorrow at 10 am to complete POLST form. Impression * Elderly lady with SOB * General weakness * Difficulties adapting to new environment * Hard of hearing * Mild confusion * Unable to make Medical decisions * Hypokalemia Suggestions * O2 supplement * Assist with ADLs * Provide privacy while using commode and reassure patient of it * Talk slowly and face patient when talking to her, make sure patient did hear you * Reorient patient X 3 * Replace K Family meeting tomorrow at 10 am with her niece Desire . Advance care planing 35 min
[2018-10-24] MEDS: Metoprolol Succinate 12.5 mg XL Tab PO SCH (11:04)
[2018-10-24] MEDS: Enoxaparin 60 mg Syringe SC SCH ×2 (12:05→22:22)
[2018-10-24] MEDS: Potassium Chloride 20 mEq/15 ml LIQ UD PO SCH ×2 (12:07→18:28)
--- NOTE | 2018-10-24 12:21 | CARD ---
APPROVED REPORT Date of service: 10/23/2018 EXAM: Two-dimensional and M-mode echocardiogram with Doppler and color Doppler. Other Information Quality : GoodRhythm : INDICATION Pericardial Effusion Mitral Valve Disease Congestive Heart Failure Non STEMI 2D DIMENSIONS IVSd0.9 (0.7-1.1cm)LVDd5.2 (3.9-5.9cm) LVOT Diameter2.0 (1.8-2.4cm)PWd0.9 (0.7-1.1cm) LA Iampcn58 (18-58mL)LVDs4.2 (2.5-4.0cm) FS (%) 19.3 %LVEF (%)25.0 (>50%) LVEF (Escobar's)25 % M-Mode DIMENSIONS Left Atrium (MM)4.72 (2.5-4.0cm)IVSd0.96 (0.7-1.1cm) Aortic Root3.58 (2.2-3.7cm)LVDd6.02 (4.0-5.6cm) Aortic Cusp Exc.1.42 (1.5-2.0cm)PWd1.00 (0.7-1.1cm) FS (%) 21 %LVDs4.76 (2.0-3.8cm) LVEF (%)25 (>50%) Aortic Valve AoV Peak Ghdyixto546.3cm/sAoV VTI37.1cmAO Peak GR.15mmHg LVOT Peak Nijxcqyu689.8cm/sLVOT VTI21.36cmAO Mean GR.9mmHg LIZBETH (VMAX)1.73jj3RIB (VTI)1.77cm2 Mitral Valve MV E Cqzfkmfl05.6cm/sMV A Quxqcvsp59.7cm/sE/A ratio0.8 TDI Lateral E' Peak V2.93cm/sMedial E' Peak V3.12cm/sE/Lateral E'23.8 E/Medial E'22.3 Tricuspid Valve TR Peak Tdjqbnin021xf/sTR Peak Gr.74zvApIFMO82hwCm LEFT VENTRICLE The Left Ventricle is mildly dilated. There is normal left ventricular wall thickness. Left ventricle systolic function is moderately to severely impaired. The Ejection Fraction is 25-30%. There is global hypokinesis of the left ventricle. Indeterminate No left ventricle thrombus noted on this study. There is no ventricular septal defect visualized. There is no left ventricular aneurysm. There is no mass noted in the left ventricle. RIGHT VENTRICLE The right ventricle is normal size. There is normal right ventricular wall thickness. The right ventricular systolic function is normal. ATRIA The left atrium is moderately dilated. The right atrium size is normal. The interatrial septum is intact with no evidence for an atrial septal defect. AORTIC VALVE The aortic valve is mildly to moderately thickened. No aortic regurgitation is present. There is mild valvular aortic stenosis. There is no aortic valvular vegetation. MITRAL VALVE The mitral valve is normal in structure and function. There is no evidence of mitral valve prolapse. There is no mitral valve stenosis. Mitral regurgitation is mild. TRICUSPID VALVE The tricuspid valve is normal in structure and function. There is mild tricuspid regurgitation. Right ventricular systolic pressure is estimated at 30-40 mmHg. There is no tricuspid valve prolapse or vegetation. There is no tricuspid valve stenosis. PULMONIC VALVE The pulmonary valve is normal in structure and function. There is no pulmonic valvular regurgitation. There is no pulmonic valvular stenosis. GREAT VESSELS The aortic root is normal in size. The ascending aorta is normal in size. The pulmonary artery is normal. The IVC is normal in size and collapses >50% with inspiration. PERICARDIAL EFFUSION The pericardium appears normal. There is a small pericardial effusion. There is no pleural effusion. <Conclusion> The Left Ventricle is mildly dilated. Left ventricle systolic function is moderately to severely impaired. The Ejection Fraction is 25-30%. The left atrium is moderately dilated. There is mild valvular aortic stenosis. Mitral regurgitation is mild. The pericardium appears normal. There is a small pericardial effusion.
[2018-10-24] MEDS ORDERED: Bisacodyl 5mg EC Tab PO PRN (13:17)
[2018-10-24] MEDS ORDERED: Potassium Chloride 20 mEq/15 ml LIQ UD PO SCH (16:45)
[2018-10-25] MEDS: Piperacillin/Tazobact 3.375 GM in Sodium Chloride 100 ML IVPB SCH (03:31)
--- NOTE | 2018-10-25 07:51 | PN ---
DATE: 10/24/2018 SUBJECTIVE: The patient is an 83-year-old female. The patient was seen and examined at bedside on 10/24/2018 and looking comfortable. No fever. No chills. No hematuria or hematochezia. According to the patient, she is improving, but in the morning, she was a little bit confused, but no chest pain, no palpitation. PHYSICAL EXAMINATION: VITAL SIGNS: Temperature 98.6, pulse 63, respiratory rate 16, blood pressure 90/50, and pulse oximetry 98. HEENT: Head: Normocephalic and atraumatic. Eyes: PERRLA. Extraocular movements intact. Conjunctivae clear. Nose patent. Mucous membrane moist. NECK: Supple. No carotid bruit. No JVD. No thyromegaly. CHEST: Bilaterally symmetric. HEART: S1, S2 positive. LUNGS: Clear to auscultation. ABDOMEN: Soft. Bowel sounds present. No organomegaly. EXTREMITIES: No edema. No cyanosis. NEUROLOGIC: The patient is awake and alert. Follows simple commands. MEDICATIONS: Aspirin, Depakote, Plavix, Colace, Lovenox, Pepcid, Lasix, Zosyn, Toprol, Crestor, and vitamin A. LABORATORY DATA: White blood cell 8.7, hemoglobin 11, hematocrit 32.1, platelets 189, glucose 104, calcium 8. AST 47 and ALT 60. ASSESSMENT AND PLAN: Ms. Merary Erickson is an 83-year-old lady with multiple medical problems. The patient is do not resuscitate at this time. Family does not wish to proceed with interventional procedures. cardiac catheterization, get medical management. Discussion done with Dr. Soto who did the cardiac catheterization. Seen by software quality specialist, Dr. Myron Gutierrez. Seen by Palliative Care also. The patient denies any past medical history except using her medications only, and has not seen doctor in centuries. Came with shortness of breath. Has pulmonary venous congestion. Today troponin was elevated. Cardiac consult called. The patient had diagnosis of [id number] myocardial infarction . The patient is made do not resuscitate , request from the patient's niece. As per Dr. Soto, I spoke to the patient's niece, made the patient do not resuscitate and do not intubate for invasive testing. Erika Fontaine MD [facility]
[2018-10-25] MEDS: Enoxaparin 60 mg Syringe SC SCH ×2 (09:21→21:45)
[2018-10-25] MEDS: Metoprolol Succinate 12.5 mg XL Tab PO SCH (09:22)
[2018-10-25 10:14] LABS: BASO # 0.1 K/uL (0.0-0.2); BASO % 0.8 % (0.0-2.0); EOS # 0.3 K/uL (0.0-0.7); EOS % 3.6 % (0.0-4.0); HEMOGLOBIN 12.9 g/dL (11.0-16.0); LYMPH # 1.8 K/uL (1.0-4.3); LYMPH % 24.3 % (20.0-40.0); MEAN CELL VOLUME 97.3 fL (81.0-99.0); MEAN CORPUSCULAR HEMOGLOBIN 33.2 pg (27.0-31.0); MEAN CORPUSCULAR HGB CONC 34.2 g/dL (33.0-37.0); MEAN PLATELET VOLUME 9.6 fL (7.2-11.7); MONO # 0.5 K/uL (0.0-0.8); NEUT # 4.7 K/uL (1.8-7.0); NEUT % 64.3 % (50.0-75.0); RBC 3.89 Mil/uL (3.80-5.20); RED CELL DISTRIBUTION WIDTH 12.8 % (11.5-14.5); WHITE BLOOD COUNT 7.3 K/uL (4.8-10.8)
[2018-10-25 10:28] LABS: ALB/GLOB RATIO 1.4 (1.0-2.1); ALBUMIN 3.7 g/dL (3.5-5.0); ALT/SGPT 59 U/L (9-52); AST/SGOT 36 U/L (14-36); BLOOD UREA NITROGEN 33 mg/dL (7-17); CALCIUM 8.4 mg/dl (8.6-10.4); GFR NON-AFRICAN AMERICAN 60
[2018-10-25] MEDS ORDERED: Potassium Chloride 20 mEq ER Tab PO ONE ×2 (11:43→13:00)
--- NOTE | 2018-10-25 22:16 | CP.PCM.PN ---
Subjective - Date & Time of Evaluation Date of Evaluation: 10/25/18 Time of Evaluation: 17:20 - Subjective Subjective: Patient seen and evaluated Denies chest pain and dyspnea Review of Systems - Constitutional Constitutional: Fatigue. absent: Chills, Fever - EENT Eyes: absent: Change in Vision, Diplopia Ears: absent: Ear Discharge, Tinnitus Nose/Mouth/Throat: absent: Nasal Congestion, Nasal Discharge, Hoarsness, Sore Throat - Cardiovascular Cardiovascular: Dyspnea, Dyspnea on Exertion. absent: Chest Pain, Chest Pain at Rest, Chest Pain with Activity, Leg Edema - Respiratory Respiratory: Cough, Dyspnea on Exertion. absent: Wheezing, Chest Congestion, Excessive Mucous Production - Gastrointestinal Gastrointestinal: absent: Abdominal Pain, Diarrhea, Nausea, Vomiting - Genitourinary Genitourinary: absent: Dysuria, Hematuria - Musculoskeletal Musculoskeletal: absent: Back Pain, Neck Pain, Numbness - Neurological Neurological: absent: Abnormal Gait, Abnormal Movements, Syncope, Weakness - Psychiatric Psychiatric: absent: Anxiety, Homicidal Ideation, Suicidal Ideation - Endocrine Endocrine: absent: Polydipsia, Polyphagia, Polyuria - Hematologic/Lymphatic Hematologic: absent: Easy Bleeding, Easy Bruising, Lymphadenopathy Physical Exam - Constitutional Appears: No Acute Distress - Head Exam Head Exam: NORMAL INSPECTION, NORMOCEPHALIC - Eye Exam Eye Exam: EOMI, Normal appearance, PERRL Pupil Exam: NORMAL ACCOMODATION - ENT Exam ENT Exam: Mucous Membranes Moist - Respiratory Exam Respiratory Exam: Decreased Breath Sounds, Rales - Cardiovascular Exam Cardiovascular Exam: +S1, +S2. absent: Irregular Rhythm - GI/Abdominal Exam GI & Abdominal Exam: Normal Bowel Sounds, Soft. absent: Distended, Tenderness - Extremities Exam Extremities exam: Positive for: normal inspection, pedal pulses present. Negative for: pedal edema, tenderness - Neurological Exam Neurological exam: Alert, Oriented x3 - Psychiatric Exam Psychiatric exam: Normal Affect, Normal Mood - Skin Skin Exam: Dry, Intact, Normal Color, Warm Assessment & Plan - Assessment and Plan (Free Text) Plan: NSTEMI s/p Cath - Critical Left Main Artery Disease Acute on Chronic Diastolic Heart Failure Pulmonary Hypertension Imaging: - Elevated D-Dimer, CTA: negative for PE - s/p Cardiac Catherization - Left main artery critical disease 99%, LAD distal diffuse 95%, RCA patent, (LVEF 20% as seen on ECHO). Will need emergency CABG. Disposition: SARAH Erickson (niece) [phone] - made patient DNR 10/23/18, 18:00 (Dr. Soto & myself present), stated she does not want any aggressive interventions, medical management ONLY. Management: - As per family, medical management only: ASA, Plavix, Metopropol, Lasix, Crestor - Continue Heparin Drip Objective - Vital Signs/Intake and Output Vital Signs (last 24 hours): Temp Pulse Resp BP Pulse Ox 97.9 F 92 H 18 100/65 97 10/25/18 20:00 10/25/18 20:00 10/25/18 20:00 10/25/18 20:00 10/25/18 20:00 Intake and Output: 10/25/18 10/26/18 18:59 06:59 Intake Total 1000 Output Total 950 Balance 50 - Medications Medications: Current Medications Aspirin (Aspirin Chewable) 81 mg PO DAILY [facility] Last Admin: 10/25/18 09:20 Dose: 81 mg Benzocaine/Menthol (Cepacol Sore Throat) 1 stalin MT Q4 PRN PRN Reason: Sore Throat Bisacodyl (Dulcolax) 5 mg PO Q12H PRN PRN Reason: Constipation Clopidogrel Bisulfate (Plavix) 75 mg PO DAILY [facility] Last Admin: 10/25/18 09:22 Dose: 75 mg Docusate Sodium (Colace) 100 mg PO TID [facility] Last Admin: 10/25/18 18:38 Dose: 100 mg Enoxaparin Sodium (Lovenox) 55 mg SC Q12 [facility] Last Admin: 10/25/18 21:45 Dose: 55 mg Famotidine (Pepcid) 20 mg PO DAILY [facility] Last Admin: 10/25/18 09:21 Dose: 20 mg Furosemide (Lasix) 20 mg IVP DAILY [facility] Last Admin: 10/25/18 09:21 Dose: 20 mg Metoprolol Succinate (Toprol Xl) 12.5 mg PO DAILY [facility] Last Admin: 10/25/18 09:22 Dose: Not Given Rosuvastatin Calcium (Crestor) 20 mg PO HS [facility] Last Admin: 10/25/18 21:46 Dose: 20 mg Vitamin A (Vitamin A & D Oint Ud Foilpak) 1 ea TOP Q4H PRN PRN Reason: Dry skin Last Admin: 10/24/18 09:28 Dose: 1 ea - Labs Labs: 10/25/18 10:04 10/25/18 10:04 PT 14.6 SECONDS (9.7-12.2) H 10/21/18 21:35 INR 1.3 10/21/18 21:35 APTT 46 SECONDS (21-34) H 10/24/18 05:25
--- NOTE | 2018-10-26 04:16 | PN ---
DATE: 10/25/2018 SUBJECTIVE: The patient is an 83-year-old female. The patient was seen and examined at the bedside on 10/25/2018. The patient's niece and brother were sitting on the bed also. The patient looks better. Sitting on the chair. No fever. No chills. No hematuria or hematochezia. No swelling of the legs. No headache or dizziness. As per the patient, she is feeling better. PHYSICAL EXAMINATION: VITAL SIGNS: Temperature 97.9, pulse 92, respiratory rate 18, blood pressure , pulse oximetry 97. HEENT: Head, normocephalic and atraumatic. Eyes, PERRLA. Extraocular muscles intact. Conjunctivae clear. Nose patent. Mucous membranes moist. NECK: Supple. No carotid bruits, JVD, or thyromegaly. CHEST: Bilaterally symmetrical. HEART: S1 and S2 positive. LUNGS: Clear to auscultation. ABDOMEN: Soft. Bowel sounds present. No organomegaly. EXTREMITIES: No edema, no cyanosis. NEUROLOGIC: The patient is awake and alert. Follows simple commands. MEDICATIONS: Aspirin, Cepacol lozenges, Dulcolax, Plavix, Colace, Lovenox, Pepcid, Lasix, Toprol, Crestor. LABORATORY DATA: White blood cells 7.3, hemoglobin 12.9, hematocrit 37.8, platelets 218. Sodium 138, potassium 3.6, BUN 33, creatinine 0.9, glucose 140. ASSESSMENT AND PLAN: Ms. Merary Erickson is an 83-year-old lady. Has [id number] myocardial infarction, critical left main artery disease, acute on chronic diastolic heart failure, pulmonary hypertension. Negative for pulmonary embolism as the cardiac catheterization shows left artery critical disease at 99%, left anterior descending artery distal diffuse 95%. According to Dr. Soto, the patient needs an emergency coronary artery bypass grafting. Power of assistant county attorney of Desire Erickson, niece and brother made the patient Do Not Resuscitate. They stated that she does not want any aggressive intervention. She wants just medical management. The patient is not a very good historian. The patient was seen by palliative care also. The patient is still in the unit. Family is looking for long-term care for the patient because she is not able to do her activities of daily living. History of pleural effusion and venous congestion. The patient is on Plavix and has heparin. Urinary tract infection, getting intravenous Zosyn. Denies any past medical history. The patient was using herbal medication only. Never saw any doctor. Length of time discussion done with the patient's niece and brother. All questions were answered. We will follow up. Erika Fontaine MD
[2018-10-26 08:28] LABS: IRON 47 ug/dL (37-170)
[2018-10-26 08:41] LABS: % IRON SATURATION 17 (20-55); TOTAL IRON BINDING CAPACITY 267 ug/dL (250-450)
[2018-10-26] MEDS: Metoprolol Succinate 12.5 mg XL Tab PO SCH (10:17)
[2018-10-26] MEDS: Enoxaparin 60 mg Syringe SC SCH (10:18)
[2018-10-26 15:33] VITALS: BP 95/60; RESP 20; TEMP 98.9
--- NOTE | 2018-10-26 15:37 | CP.PCM.PN ---
Subjective - Date & Time of Evaluation Date of Evaluation: 10/26/18 Time of Evaluation: 08:00 - Subjective Subjective: COVERING FOR DR SNELL no chest pain no sob NAD DNR as per patient's request Objective - Vital Signs/Intake and Output Vital Signs (last 24 hours): Temp Pulse Resp BP Pulse Ox 98.9 F 80 20 95/60 L 98 10/26/18 15:32 10/26/18 15:32 10/26/18 15:32 10/26/18 15:32 10/26/18 15:32 Intake and Output: 10/26/18 10/26/18 06:59 18:59 Intake Total 120 Balance 120 - Medications Medications: Current Medications Aspirin (Aspirin Chewable) 81 mg PO DAILY [facility] Last Admin: 10/26/18 10:18 Dose: 81 mg Benzocaine/Menthol (Cepacol Sore Throat) 1 stalin MT Q4 PRN PRN Reason: Sore Throat Last Admin: 10/26/18 13:22 Dose: 1 stalin Bisacodyl (Dulcolax) 5 mg PO Q12H PRN PRN Reason: Constipation Clopidogrel Bisulfate (Plavix) 75 mg PO DAILY [facility] Last Admin: 10/26/18 10:18 Dose: 75 mg Docusate Sodium (Colace) 100 mg PO TID [facility] Last Admin: 10/26/18 13:17 Dose: 100 mg Enoxaparin Sodium (Lovenox) 55 mg SC Q12 [facility] Last Admin: 10/26/18 10:18 Dose: 55 mg Famotidine (Pepcid) 20 mg PO DAILY [facility] Last Admin: 10/26/18 10:17 Dose: 20 mg Furosemide (Lasix) 20 mg IVP DAILY [facility] Last Admin: 10/26/18 10:18 Dose: 20 mg Metoprolol Succinate (Toprol Xl) 12.5 mg PO DAILY [facility] Last Admin: 10/26/18 10:17 Dose: 12.5 mg Rosuvastatin Calcium (Crestor) 20 mg PO HS [facility] Last Admin: 10/25/18 21:46 Dose: 20 mg Vitamin A (Vitamin A & D Oint Ud Foilpak) 1 ea TOP Q4H PRN PRN Reason: Dry skin Last Admin: 10/24/18 09:28 Dose: 1 ea - Labs Labs: 10/25/18 10:04 10/25/18 10:04 PT 14.6 SECONDS (9.7-12.2) H 10/21/18 21:35 INR 1.3 10/21/18 21:35 APTT 46 SECONDS (21-34) H 10/24/18 05:25 - Constitutional Appears: Non-toxic, No Acute Distress - Head Exam Head Exam: NORMAL INSPECTION - Eye Exam Eye Exam: absent: Scleral icterus - Neck Exam Neck Exam: Full ROM - Respiratory Exam Respiratory Exam: Decreased Breath Sounds - Cardiovascular Exam Cardiovascular Exam: REGULAR RHYTHM - GI/Abdominal Exam GI & Abdominal Exam: Soft - Extremities Exam Extremities Exam: absent: Pedal Edema - Neurological Exam Neurological Exam: Alert Assessment and Plan - Assessment and Plan (Free Text) Assessment: ACS CAD w/ critical left main disease Plan: Medical therapy Pt refused cardiac intervention DNR as per patient's request POOR PROGNOSIS as per cardiac cath findings
[2018-10-26 16:54] VITALS: PULSE 86; O2SAT 96
--- NOTE | 2018-10-26 17:18 | CARD ---
APPROVED REPORT Date of service: 10/21/2018 EKG Measurement Heart [id number] ID [id number] <Conclusion> Sinus tachycardia Left axis deviation Anteroseptal infarct, age undertermined, Abnormal ECG
--- NOTE | 2018-10-27 07:50 | CP.PCM.PN ---
Subjective - Date & Time of Evaluation Date of Evaluation: 10/26/18 Time of Evaluation: 16:00 - Subjective Subjective: Patient seen today states feels better, denies any chest pain, sob,or any other complaints No overnight events reported by RN vss and labs - reviewed Objective - Vital Signs/Intake and Output Vital Signs (last 24 hours): Temp Pulse Resp BP Pulse Ox 98.9 F 86 20 95/60 L 96 10/26/18 15:32 10/26/18 16:45 10/26/18 15:32 10/26/18 15:32 10/26/18 16:45 - Labs Labs: 10/25/18 10:04 10/25/18 10:04 PT 14.6 SECONDS (9.7-12.2) H 10/21/18 21:35 INR 1.3 10/21/18 21:35 APTT 46 SECONDS (21-34) H 10/24/18 05:25 Assessment and Plan - Assessment and Plan (Free Text) Assessment: A/P 83 YR OLD old female admitted with acute CHF and dyspnea s/p Cardiac Catherization - Left main artery critical disease 99%, LAD distal diffuse 95%, RCA patent, and LF 20% and patient require CABG. but family decided no intervention and medical management Patient DNR Patient accepted at [facility] fo rehab and family in agreement D/w Dr. Buitrago , cleared for discharge to [facility] today and Dr. Buitrago will follow the patient at [facility]
--- NOTE | 2018-10-27 07:51 | PCM.HF ---
Heart Failure Core Measure - Heart Failure Ejection Fraction: Less Than 40 % CM Inhibitor Prescribed: No Contraindication/Reason for not providing: bp running low Beta-Cheryl Prescribed: Metoprolol Succinate Angiotensin II Receptor Cheryl Prescribed: No Contraindication/Reason for not providing: bp running low AnticoagulationTherapy for Atrial Fibrillation/Atrialflutter: No Contraindication/Reason for not providing: no hx of a fib Aldosterone Antagonist Prescribed: No Contraindication/Reason for not providing: risk for hyperkalemia Hydralazine Nitrate Prescribed: No Contraindication/Reason for not providing: bp running low Implantable Cardioverter Defibrillator Therapy: No Contraindication/Reason for not providing: Patient and family decided medical management only Cardiac Resynchronization Therapy Prescribed: No Contraindication/Reason for not providing: patient and family decided medical management only - Follow up Will be discharged to: Long-Term Facility ([facility]) Follow Up Date (must be within 7 days from discharge): 10/30/18 Follow Up Time: 16:00
--- NOTE | 2018-10-28 13:11 | CP.PCM.PN ---
Subjective - Date & Time of Evaluation Date of Evaluation: 10/24/18 Time of Evaluation: 15:10 - Subjective Subjective: Patient seen and evaluated Denies chest pain and dyspnea Review of Systems - Constitutional Constitutional: Fatigue. absent: Chills, Fever - EENT Eyes: absent: Change in Vision, Diplopia Ears: absent: Ear Discharge, Tinnitus Nose/Mouth/Throat: absent: Nasal Congestion, Nasal Discharge, Hoarsness, Sore Throat - Cardiovascular Cardiovascular: Dyspnea, Dyspnea on Exertion. absent: Chest Pain, Chest Pain at Rest, Chest Pain with Activity, Leg Edema - Respiratory Respiratory: Cough, Dyspnea on Exertion. absent: Wheezing, Chest Congestion, Excessive Mucous Production - Gastrointestinal Gastrointestinal: absent: Abdominal Pain, Diarrhea, Nausea, Vomiting - Genitourinary Genitourinary: absent: Dysuria, Hematuria - Musculoskeletal Musculoskeletal: absent: Back Pain, Neck Pain, Numbness - Neurological Neurological: absent: Abnormal Gait, Abnormal Movements, Syncope, Weakness - Psychiatric Psychiatric: absent: Anxiety, Homicidal Ideation, Suicidal Ideation - Endocrine Endocrine: absent: Polydipsia, Polyphagia, Polyuria - Hematologic/Lymphatic Hematologic: absent: Easy Bleeding, Easy Bruising, Lymphadenopathy Physical Exam - Constitutional Appears: No Acute Distress - Head Exam Head Exam: NORMAL INSPECTION, NORMOCEPHALIC - Eye Exam Eye Exam: EOMI, Normal appearance, PERRL Pupil Exam: NORMAL ACCOMODATION - ENT Exam ENT Exam: Mucous Membranes Moist - Respiratory Exam Respiratory Exam: Decreased Breath Sounds, Rales - Cardiovascular Exam Cardiovascular Exam: +S1, +S2. absent: Irregular Rhythm - GI/Abdominal Exam GI & Abdominal Exam: Normal Bowel Sounds, Soft. absent: Distended, Tenderness - Extremities Exam Extremities exam: Positive for: normal inspection, pedal pulses present. Negative for: pedal edema, tenderness - Neurological Exam Neurological exam: Alert, Oriented x3 - Psychiatric Exam Psychiatric exam: Normal Affect, Normal Mood - Skin Skin Exam: Dry, Intact, Normal Color, Warm Assessment & Plan - Assessment and Plan (Free Text) Plan: NSTEMI s/p Cath - Critical Left Main Artery Disease Acute on Chronic Diastolic Heart Failure Pulmonary Hypertension Imaging: - Elevated D-Dimer, CTA: negative for PE - s/p Cardiac Catherization - Left main artery critical disease 99%, LAD distal diffuse 95%, RCA patent, (LVEF 20% as seen on ECHO). Will need emergency CABG. Disposition: SARAH Erickson (niece) [phone] - made patient DNR 10/23/18, 18:00 (Dr. Soto & myself present), stated she does not want any aggressive interventions, medical management ONLY. Management: - As per family, medical management only: ASA, Plavix, Metopropol, Lasix, Crestor Objective - Vital Signs/Intake and Output Vital Signs (last 24 hours): Temp Pulse Resp BP Pulse Ox 98.9 F 86 20 95/60 L 96 10/26/18 15:32 10/26/18 16:45 10/26/18 15:32 10/26/18 15:32 10/26/18 16:45 - Labs Labs: 10/25/18 10:04 10/25/18 10:04 PT 14.6 SECONDS (9.7-12.2) H 10/21/18 21:35 INR 1.3 10/21/18 21:35 APTT 46 SECONDS (21-34) H 10/24/18 05:25
--- NOTE | 2018-10-29 02:41 | CARDCATH ---
PROCEDURE DATE: 10/23/2018 PROCEDURE: Coronary angiogram. CLINICAL INDICATIONS: 1. Chest pain. 2. Dyspnea. 3. Lmk-SY-ztgjjwmbc myocardial infarction. 4. Acute systolic congestive heart failure. 5. Hypertension. 6. Hyperlipidemia. BRIEF CLINICAL HISTORY: Merary Erickson is an 83-year-old female who presented to [facility] with the chief complaints of dyspnea and minimal exertional chest pain. The patient's subsequent workup has revealed the patient has a ion-CE-azimdclnm myocardial infarction. The patient had an echo done, which has shown EF of 10-15%, severe global hypokinesis of the left ventricle. The patient was advised to undergo cardiac catheterization. Consent was taken from the power of employee benefits attorney. DESCRIPTION OF PROCEDURE: After informed consent, the patient was prepped and draped in the usual sterile fashion. Lidocaine 2% was given in the right groin for local anesthesia. Using micropuncture technique, 6-Guamanian sheath was introduced into right common femoral artery. A JR-4 6-Guamanian diagnostic catheter was engaged into right coronary artery. Contrast injected, and right coronary angiogram was done. The catheter was exchanged to 6-Guamanian JL-4 diagnostic catheter. Contrast injected, and left coronary angiogram was done. The patient tolerated the procedure well. PROCEDURE FINDINGS: 1. Ostial left main has a critical 99% stenosis. Mid and distal LAD has calcific lesions. Mid and distal left main has 60-70% stenosis. 2. Ostial circumflex has a 95% calcific stenosis. Distal circumflex and obtuse marginal branches are patent. 3. Proximal LAD is patent, however, mid to distal LAD has a diffuse 95% narrowing. Diagonal branches are small. 4. Right coronary artery is dominant and patent. CONCLUSION: 1. Critical 99% ostial left main disease. Severe mid and distal left main disease. 2. Critical ostial circumflex disease. 3. Diffuse mid and distal left anterior descending disease. 4. Ejection fraction by echocardiogram is 10-15%. PLAN: The patient has a critical and severe coronary artery disease, severe LV dysfunction. High-risk patient either for CABG or coronary angioplasty. However, due to dense calcification in the left main, not an ideal candidate for left main intervention. The patient was advised to undergo coronary artery bypass grafting. After the heavy discussion with the patient and the power of employee benefits attorney, they do not want any further intervention including coronary angioplasty. Upon the request of the patient and power of employee benefits attorney, the patient was made DNR. The patient will be transferred to intensive care unit for medical management only. William Soto MD
--- NOTE | 2018-11-01 00:10 | DS ---
The patient was discharged to rehab facility on 10/26/2018. The patient was seen and examined at bedside on 10/26/2018. CHIEF COMPLAINT: Shortness of breath, respiratory distress. HISTORY OF PRESENT ILLNESS: Ms. Merary Erickson is an 83-year-old female, brought to the emergency room by EMS for evaluation of shortness of breath and wheezing. The patient was given DuoNeb, albuterol and Solu-Medrol on the field. The patient denies any previous medical history, not recently taking any medications, never saw any doctor. The patient denies any fever or chills. We admitted the patient, did a CAT scan of the chest, CAT scan of the abdomen and pelvis. Cardiac catheterization was done by Dr. Soto. The patient needed surgery, but the patient's niece, power of county attorney, the patient and the patient's brother refused the surgery. The patient was admitted in the unit, improved, transferred to the medical floor and then transferred to [facility], for deconditioning. PAST MEDICAL HISTORY: No chronic disease. PAST SURGICAL HISTORY: No surgical history. FAMILY HISTORY: Father and mother, noncontributory. HABITS: Never smoked. No drugs. No ethanol. ALLERGIES: THE PATIENT IS NOT ALLERGIC TO ANY MEDICATIONS. HOME MEDICATIONS: Refused. REVIEW OF SYSTEMS: The patient was seen and examined at the bedside, looking comfortable. No fever, no chills. No nausea, vomiting or diarrhea. No headache, no dizziness, no chest pain, no palpitation. Feeling better. PHYSICAL EXAMINATION VITAL SIGNS: Temperature 98.9, pulse 86, respiratory rate 20, blood pressure 95/60, pulse oximetry 96. HEENT: Head: Normocephalic and atraumatic. Eyes: PERRLA. Extraocular muscles are intact. Conjunctivae clear. Nose patent. Mucous membranes moist. NECK: Supple. No carotid bruits, JVD or thyromegaly. CHEST: Bilaterally symmetrical. HEART: S1 and S2 positive. LUNGS: Clear to auscultation. ABDOMEN: Soft. Bowel sounds present. No organomegaly. EXTREMITIES: No edema. No cyanosis. NEUROLOGICAL: The patient is awake and alert, follows simple commands. LABORATORY DATA: White blood cell 7.3, hemoglobin 12.9, hematocrit 37.8 and platelets 218. Sodium 138, potassium 3.6, BUN 33, creatinine 0.9 and glucose 140. ASSESSMENT AND PLAN: Ms. Merary Erickson, 83-year-old lady, had non-ST elevation myocardial infarction, critical left main artery disease, puptg-[id number] diastolic heart failure, pulmonary hypertension. No pulmonary emboli. Cardiac catheterization shows left artery critically diseased at 99%, left anterior descending artery distally diffuse at 95%. According to Dr. Soto, the patient needed an emergency coronary artery bypass grafting. Power of county attorney, Desire Erickson, niece and her brother, I met them in the unit, made the patient do not resuscitate. They do not want aggressive intervention, refused surgery. She wants just medical management. The patient is not a good historian, but we were talking to the patient's niece. The patient was seen by Palliative Care. Family was looking long-term care for the patient because she is not able to do her activities of daily living, lives alone, history of pleural effusion and venous congestion. The patient is on Plavix and was on heparin, discontinued that. Urinary tract infection, got intravenous Zosyn. The patient was using actually herbal medications only, never used medical medication. Discussion held with the patient, the patient's niece and brother. All questions answered. On 10/26/2018, the patient was transferred to [facility]. We will follow up there. Erika Fontaine MD
== END 2018-10-26 18:30 | DRG 280 ==
LOC: C.ER 21:18 → C.9I 23:38 → C.5S 10-25 22:23
PROVIDERS: ADMIT Internal Medicine; ATTEND Internal Medicine
PROC: 5A09457 Assistance with Respiratory Ventilation, 24-96 Consecutive Hours, Continuous Positive Airway Pressure (ICD-10-PCS; 2018-10-21)
PROC: 4A023N7 Measurement of Cardiac Sampling and Pressure, Left Heart, Percutaneous Approach (ICD-10-PCS; principal; 2018-10-23)
PROC: B2111ZZ Fluoroscopy of Multiple Coronary Arteries using Low Osmolar Contrast (ICD-10-PCS; 2018-10-23)
PROC: B2151ZZ Fluoroscopy of Left Heart using Low Osmolar Contrast (ICD-10-PCS; 2018-10-23)
DX: I21.4 Non-ST elevation (NSTEMI) myocardial infarction (principal); I50.33 Acute on chronic diastolic (congestive) heart failure; J96.20 Acute and chronic respiratory failure, unspecified whether with hypoxia or hypercapnia; N39.0 Urinary tract infection, site not specified; I27.20 Pulmonary hypertension, unspecified; E87.6 Hypokalemia; Z87.891 Personal history of nicotine dependence; R73.9 Hyperglycemia, unspecified; T50.1X5A Adverse effect of loop [high-ceiling] diuretics, initial encounter; Z51.5 Encounter for palliative care; Z66 Do not resuscitate

== ENCOUNTER 2018-11-11 23:25 | Inpatient (IN) | payer MEDICARE, OTHER ==
[2018-11-11] MEDS ORDERED: Nitroglycerin 50mg in D5W 50 MG/250 ML BOTTLE IV ONE (23:44)
[2018-11-11 23:45] LABS: BASO # 0.1 K/uL (0.0-0.2); BASO % 0.6 % (0.0-2.0); EOS # 0.1 K/uL (0.0-0.7); EOS % 1.5 % (0.0-4.0); LYMPH % 35.6 % (20.0-40.0); MEAN CELL VOLUME 100.5 fL (81.0-99.0); MEAN CORPUSCULAR HEMOGLOBIN 33.2 pg (27.0-31.0); MEAN CORPUSCULAR HGB CONC 33.1 g/dL (33.0-37.0); MONO # 0.5 K/uL (0.0-0.8); MONO % 5.7 % (0.0-10.0); NEUT # 4.8 K/uL (1.8-7.0); NEUT % 56.6 % (50.0-75.0); NRBC % 0.1 % (0.0-2.0); RBC 3.91 Mil/uL (3.80-5.20); RED CELL DISTRIBUTION WIDTH 13.8 % (11.5-14.5); WHITE BLOOD COUNT 8.5 K/uL (4.8-10.8)
[2018-11-11 23:52] LABS: ABG ALLEN TEST POS; ARTERIAL BLOOD GAS O2 SAT 99.4 % (95-98); ARTERIAL BLOOD GAS PCO2 43 mm/Hg (35-45); ARTERIAL BLOOD GAS PH 7.32 (7.35-7.45); ARTERIAL BLOOD GAS PO2 294 mm/Hg (80-100); ARTERIAL BLOOD GAS TCO2 23.5 mmol/L (22-28)
[2018-11-11 23:54] LABS: INR 1.3; PROTHROMBIN TIME 14.4 SECONDS (9.7-12.2)
[2018-11-12] LABS: ALB/GLOB RATIO 1.5 (1.0-2.1); ALBUMIN 4.3 g/dL (3.5-5.0); ALT/SGPT 101 U/L (9-52); AST/SGOT 78 U/L (14-36); BLOOD UREA NITROGEN 37 mg/dL (7-17); CALCIUM 9.3 mg/dl (8.6-10.4); GFR NON-AFRICAN AMERICAN > 60
[2018-11-12] MEDS ORDERED: Nitroglycerin 50mg in D5W 50 MG/250 ML BOTTLE IV ONE (00:03)
[2018-11-12 00:11] LABS: B-TYPE NATRIURETIC PEPTIDE 18400 pg/mL (0-900); CK-MB 1.06 ng/mL (0.0-3.38)
--- NOTE | 2018-11-12 00:28 | C.PDOC ---
History Of Present Illness [place]. Patient was placed on CPAP in the field, is DNR/DNI and refused intubation. History is limited due to clinical condition. PMHx: CHF Time Seen by Provider: 11/11/18 23:31 Chief Complaint (Nursing): Respiratory Distress History Per: EMS, Other ([place] records ) History/Exam Limitations: clinical condition Onset/Duration Of Symptoms: Unknown Severity: Severe Past Medical History Reviewed: Historical Data, Nursing Documentation, Vital Signs Vital Signs: Last Vital Signs Temp Pulse 118 H 11/11/18 23:28 Resp 33 H 11/11/18 23:28 BP 124/91 H 11/11/18 23:28 Pulse Ox 96 11/11/18 23:28 - Medical History PMH: CHF - [facility] Procedures ASSISTANCE WITH RESPIRATORY VENTILATION, 24-96 HRS, CPAP (10/21/18) FLUOROSCOPY OF LEFT HEART USING LOW OSMOLAR CONTRAST (10/21/18) FLUOROSCOPY OF MULT COR ART USING L OSM CONTRAST (10/21/18) MEASURE OF CARDIAC SAMPL & PRESSURE, L HEART, PERC APPROACH (10/21/18) Family History: States: No Known Family Hx - Social History Hx Alcohol Use: No Hx Substance Use: No - Immunization History Hx Tetanus Toxoid Vaccination: No Hx Influenza Vaccination: No Hx Pneumococcal Vaccination: No Review Of Systems Review Of Systems: ROS cannot be obtained secondary to pt's inabilty to answer questions. Physical Exam - Physical Exam Appears: In Acute Distress (in moderate to severe respiratory distress) Skin: Normal Color, Warm, Dry Oral Mucosa: Moist Cardiovascular: Rhythm Regular (tachycardic ) Respiratory: Accessory Muscle Use (moderate to severe ), Rales (B/L ), No Rhonchi, No Wheezing Gastrointestinal/Abdominal: Normal Exam, Bowel Sounds, Soft, No Tenderness Extremity: Pedal Edema (+3 pitting edema B/L LEs) Pulses: Left Dorsalis Pedis: Normal, Right Dorsalis Pedis: Normal Neurological/Psych: Oriented x3 ED Course And Treatment - Laboratory Results Result Diagrams: 11/11/18 23:42 11/11/18 23:42 ECG: Interpreted By Me, Viewed By Me (sinus rhythm 85 bpm, left axis deviation, T wave inversions III, aVF, no ST changes) ECG Interpretation: Abnormal O2 Sat by Pulse Oximetry: 96 (CPAP) Pulse Ox Interpretation: Normal Disposition - Disposition Forms: [facility] (Macedonian)
[2018-11-12 01:11] LABS: SQUAMOUS EPITHIAL < 1 /hpf (0-5); URINE BILIRUBIN NEGATIVE (NEGATIVE); URINE BLOOD NEGATIVE (NEGATIVE); URINE CLARITY Clear (Clear); URINE COLOR Yellow (YELLOW); URINE GLUCOSE (UA) NORMAL (Normal); URINE LEUKOCYTE ESTERASE NEG Leu/uL (Negative); URINE PROTEIN 1+ mg/dL (NEGATIVE); URINE UROBILINOGEN NORMAL mg/dL (0.2-1.0)
[2018-11-12] MEDS: Potassium Chloride 20 mEq ER Tab PO SCH (09:30)
[2018-11-12] MEDS: Metoprolol Succinate 12.5 mg XL Tab PO SCH (09:30)
[2018-11-12] MEDS: Enoxaparin 60 mg Syringe SC SCH ×2 (14:16→22:32)
--- NOTE | 2018-11-12 15:09 | CP.PCM.CON ---
History of Present Illness - History of Present Illness History of Present Illness: Reason for consultation: shortness of breath 83-year-old femalewith history of coronary artery disease status post cardiac catheter recently with multivessel diseasea, patient refused CABG and signed DNR DNI.patient has been having symptoms of shortness of breath, fatigue, and dypsnea on exertion, Up until the night prior, from admission, she had severe shortness of breath. Patient has significant bilateral pleurial effusions, co ngestive heart failure and admitted to floor. PMHx: As noted above PSHx: Denied All: NKDA SHx: Denied FHx: extensive heart disease, MIs in both sides of the family Review of Systems - Review of Systems All systems: reviewed and no additional remarkable complaints except (shortness of breath) Past Patient History - Infectious Disease Hx of Infectious Diseases: None - Tetanus Immunizations Tetanus Immunization: Unknown - Past Medical History & Family History Past Medical History?: Yes - Past Social History Smoking Status: Never Smoked - CARDIAC Hx Congestive Heart Failure: Yes - MUSCULOSKELETAL/RHEUMATOLOGICAL Hx Falls: No - PSYCHIATRIC Hx Substance Use: No - SURGICAL HISTORY Hx Surgeries: No - ANESTHESIA Hx Anesthesia: No Meds Allergies/Adverse Reactions: Allergies Allergy/AdvReac Type Severity Reaction Status Date / Time No Known Allergies Allergy Verified 10/21/18 21:29 - Medications Medications: Current Medications Aspirin (Aspirin Chewable) 81 mg PO DAILY [facility] Last Admin: 11/12/18 09:30 Dose: 81 mg Clopidogrel Bisulfate (Plavix) 75 mg PO DAILY [facility] Last Admin: 11/12/18 09:30 Dose: 75 mg Docusate Sodium (Colace) 100 mg PO TID [facility] Last Admin: 11/12/18 14:16 Dose: 100 mg Enoxaparin Sodium (Lovenox) 60 mg SC Q12 [facility] Last Admin: 11/12/18 14:16 Dose: 60 mg Famotidine (Pepcid) 20 mg PO DAILY [facility] Last Admin: 11/12/18 09:31 Dose: 20 mg Furosemide (Lasix) 40 mg IVP BID [facility] Last Admin: 11/12/18 09:30 Dose: Not Given Metoprolol Succinate (Toprol Xl) 12.5 mg PO DAILY [facility] Last Admin: 11/12/18 09:30 Dose: Not Given Pneumococcal Polyvalent Vaccine (Pneumovax 23 Vaccine) 0.5 ml IM .ONCE ONE Stop: 11/14/18 14:01 Potassium Chloride (K-Dur 20 Meq Er Tab) 20 meq PO DAILY [facility] Last Admin: 11/12/18 09:30 Dose: 20 meq Rosuvastatin Calcium (Crestor) 10 mg PO HS [facility] Physical Exam - Head Exam Head Exam: ATRAUMATIC, NORMOCEPHALIC - ENT Exam ENT Exam: Mucous Membranes Moist - Neck Exam Neck exam: Positive for: Normal Inspection - Respiratory Exam Respiratory Exam: Rales - Cardiovascular Exam Cardiovascular Exam: REGULAR RHYTHM - GI/Abdominal Exam GI & Abdominal Exam: Normal Bowel Sounds, Soft - Extremities Exam Extremities exam: Positive for: normal inspection Results - Vital Signs Recent Vital Signs: Last Vital Signs Temp 97.4 F L 11/12/18 07:40 Pulse 89 11/12/18 12:00 Resp 20 11/12/18 07:40 BP 93/61 L 11/12/18 09:30 Pulse Ox 100 11/12/18 07:40 - Labs Result Diagrams: 11/11/18 23:42 11/11/18 23:42 Labs: Laboratory Results - last 24 hr 11/11/18 11/11/18 11/11/18 23:42 23:42 23:42 WBC 8.5 RBC 3.91 Hgb 13.0 Hct 39.3 MCV 100.5 H D MCH 33.2 H MCHC 33.1 RDW 13.8 Plt Count 237 MPV 10.0 Neut % (Auto) 56.6 Lymph % (Auto) 35.6 [place] % (Auto) 5.7 Eos % (Auto) 1.5 Baso % (Auto) 0.6 Neut # (Auto) 4.8 Lymph # (Auto) 3.0 [place] # (Auto) 0.5 Eos # (Auto) 0.1 Baso # (Auto) 0.1 PT 14.4 H INR 1.3 APTT 32 Puncture Site pCO2 pO2 HCO3 ABG pH ABG Total CO2 ABG O2 Saturation ABG Base Excess Angelo Test ABG Potassium A-a O2 Difference Respiratory Index Glucose Lactate Vent Mode FiO2 Inspiratory BiPAP Expiratory BiPAP Sodium 140 Potassium 3.7 Chloride 102 Carbon Dioxide 28 Anion Gap 14 BUN 37 H Creatinine 0.8 Est GFR ( Amer) > 60 Est GFR (Non-Af Amer) > 60 Random Glucose 194 H D Calcium 9.3 Total Bilirubin 0.6 AST 78 H D ALT 101 H D Alkaline Phosphatase 103 Total Creatine Kinase 40 CK-MB (Mass) 1.06 Troponin I 0.0590 NT-Pro-B Natriuret Pep 56404 H Total Protein 7.2 Albumin 4.3 Globulin 2.9 Albumin/Globulin Ratio 1.5 Arterial Blood Potassium Urine Color Urine Clarity Urine pH Ur Specific [place] Urine Protein Urine Glucose (UA) Urine Ketones Urine Blood Urine Nitrate Urine Bilirubin Urine Urobilinogen Ur Leukocyte Esterase Urine WBC (Auto) Urine RBC (Auto) Ur Squamous Epith Cells Hyaline Casts 11/11/18 11/12/18 23:44 00:18 WBC RBC Hgb Hct MCV MCH MCHC RDW Plt Count MPV Neut % (Auto) Lymph % (Auto) [place] % (Auto) Eos % (Auto) Baso % (Auto) Neut # (Auto) Lymph # (Auto) [place] # (Auto) Eos # (Auto) Baso # (Auto) PT INR APTT Puncture Site Rr pCO2 43 pO2 294 H HCO3 22.0 ABG pH 7.32 L ABG Total CO2 23.5 ABG O2 Saturation 99.4 H ABG Base Excess -3.9 L Angelo Test Pos ABG Potassium 3.5 L A-a O2 Difference 365.0 Respiratory Index 1.2 Glucose 212 H Lactate 1.5 Vent Mode Bipap FiO2 100.0 Inspiratory BiPAP 10 Expiratory BiPAP 6 Sodium 141.0 Potassium Chloride 111.0 H Carbon Dioxide Anion Gap BUN Creatinine Est GFR ( Amer) Est GFR (Non-Af Amer) Random Glucose Calcium Total Bilirubin AST ALT Alkaline Phosphatase Total Creatine Kinase CK-MB (Mass) Troponin I NT-Pro-B Natriuret Pep Total Protein Albumin Globulin Albumin/Globulin Ratio Arterial Blood Potassium 3.5 L Urine Color Yellow Urine Clarity Clear Urine pH 6.0 Ur Specific [place] 1.010 Urine Protein 1+ H Urine Glucose (UA) Normal Urine Ketones Negative Urine Blood Negative Urine Nitrate Negative Urine Bilirubin Negative Urine Urobilinogen Normal Ur Leukocyte Esterase Neg Urine WBC (Auto) 1 Urine RBC (Auto) 2 Ur Squamous Epith Cells < 1 Hyaline Casts 11-20 H Assessment & Plan (1) Acute CHF Status: Acute Comment: continue diuretics. BiPAP if needed. Patient does not want any aggressive intervention. Medical management
--- NOTE | 2018-11-12 15:57 | RAD ---
Date of service: 11/12/2018 PROCEDURE: CHEST RADIOGRAPH, 1 VIEW HISTORY: SOB COMPARISON: 10/21/2018 FINDINGS: LUNGS: Extensive opacity at right base. Possible pneumonia with superimposed pleural effusion. PLEURA: Small bilateral pleural effusion on the left and moderate right pleural effusion. CARDIOVASCULAR: No aortic atherosclerotic calcification present. Normal heart size. Mild congestive change. OSSEOUS STRUCTURES: No significant abnormalities. VISUALIZED UPPER ABDOMEN: Normal. OTHER FINDINGS: None. IMPRESSION: Left greater than right pleural effusion. Left basilar opacity. Possible pneumonia. Mild congestive change
--- NOTE | 2018-11-12 16:32 | CP.PCM.CON ---
History of Present Illness - History of Present Illness History of Present Illness: Patient [place] from [place] for respiratory distress. Patient was placed on CPAP in the field, is DNR/DNI and refused intubation. History is limited due to clinical condition.At the time of examination, walking in the room. some SOB. Past Patient History - Infectious Disease Hx of Infectious Diseases: None - Tetanus Immunizations Tetanus Immunization: Unknown - Past Medical History & Family History Past Medical History?: Yes - Past Social History Smoking Status: Never Smoked - CARDIAC Hx Congestive Heart Failure: Yes - MUSCULOSKELETAL/RHEUMATOLOGICAL Hx Falls: No - PSYCHIATRIC Hx Substance Use: No - SURGICAL HISTORY Hx Surgeries: No - ANESTHESIA Hx Anesthesia: No Meds Allergies/Adverse Reactions: Allergies Allergy/AdvReac Type Severity Reaction Status Date / Time No Known Allergies Allergy Verified 10/21/18 21:29 - Medications Medications: Current Medications Aspirin (Aspirin Chewable) 81 mg PO DAILY ON [facility] Last Admin: 11/12/18 09:30 Dose: 81 mg Clopidogrel Bisulfate (Plavix) 75 mg PO DAILY [facility] Last Admin: 11/12/18 09:30 Dose: 75 mg Docusate Sodium (Colace) 100 mg PO TID ON [facility] Last Admin: 11/12/18 14:16 Dose: 100 mg Enoxaparin Sodium (Lovenox) 60 mg SC Q12 [facility] Last Admin: 11/12/18 14:16 Dose: 60 mg Famotidine (Pepcid) 20 mg PO DAILY [facility] Last Admin: 11/12/18 09:31 Dose: 20 mg Furosemide (Lasix) 40 mg IVP BID [facility] Metoprolol Succinate (Toprol Xl) 12.5 mg PO DAILY [facility] Last Admin: 11/12/18 09:30 Dose: Not Given Pneumococcal Polyvalent Vaccine (Pneumovax 23 Vaccine) 0.5 ml IM .ONCE ONE Stop: 11/14/18 14:01 Potassium Chloride (K-Dur 20 Meq Er Tab) 20 meq PO DAILY [facility] Last Admin: 11/12/18 09:30 Dose: 20 meq Rosuvastatin Calcium (Crestor) 10 mg PO HS ON [facility] Physical Exam - Head Exam Head Exam: NORMOCEPHALIC - Neck Exam Neck exam: Positive for: Normal Inspection - Respiratory Exam Respiratory Exam: NORMAL BREATHING PATTERN - Cardiovascular Exam Additional comments: Sinus with frequent PVC. - GI/Abdominal Exam GI & Abdominal Exam: Hyperactive Bowel Sounds, Normal Bowel Sounds - Extremities Exam Extremities exam: Positive for: pedal edema - Neurological Exam Neurological exam: Alert Results - Vital Signs Recent Vital Signs: Last Vital Signs Temp 97.4 F L 11/12/18 07:40 Pulse 89 11/12/18 12:00 Resp 20 11/12/18 07:40 BP 93/61 L 11/12/18 09:30 Pulse Ox 100 11/12/18 07:40 - Labs Result Diagrams: 11/11/18 23:42 11/11/18 23:42 Labs: Laboratory Results - last 24 hr 11/11/18 11/11/18 11/11/18 23:42 23:42 23:42 WBC 8.5 RBC 3.91 Hgb 13.0 Hct 39.3 MCV 100.5 H D MCH 33.2 H MCHC 33.1 RDW 13.8 Plt Count 237 MPV 10.0 Neut % (Auto) 56.6 Lymph % (Auto) 35.6 Talbot % (Auto) 5.7 Eos % (Auto) 1.5 Baso % (Auto) 0.6 Neut # (Auto) 4.8 Lymph # (Auto) 3.0 Talbot # (Auto) 0.5 Eos # (Auto) 0.1 Baso # (Auto) 0.1 PT 14.4 H INR 1.3 APTT 32 Puncture Site pCO2 pO2 HCO3 ABG pH ABG Total CO2 ABG O2 Saturation ABG Base Excess Angelo Test ABG Potassium A-a O2 Difference Respiratory Index Glucose Lactate Vent Mode FiO2 Inspiratory BiPAP Expiratory BiPAP Sodium 140 Potassium 3.7 Chloride 102 Carbon Dioxide 28 Anion Gap 14 BUN 37 H Creatinine 0.8 Est GFR ( Amer) > 60 Est GFR (Non-Af Amer) > 60 Random Glucose 194 H D Calcium 9.3 Total Bilirubin 0.6 AST 78 H D ALT 101 H D Alkaline Phosphatase 103 Total Creatine Kinase 40 CK-MB (Mass) 1.06 Troponin I 0.0590 NT-Pro-B Natriuret Pep 49161 H Total Protein 7.2 Albumin 4.3 Globulin 2.9 Albumin/Globulin Ratio 1.5 Arterial Blood Potassium Urine Color Urine Clarity Urine pH Ur Specific [place] Urine Protein Urine Glucose (UA) Urine Ketones Urine Blood Urine Nitrate Urine Bilirubin Urine Urobilinogen Ur Leukocyte Esterase Urine WBC (Auto) Urine RBC (Auto) Ur Squamous Epith Cells Hyaline Casts 11/11/18 11/12/18 23:44 00:18 WBC RBC Hgb Hct MCV MCH MCHC RDW Plt Count MPV Neut % (Auto) Lymph % (Auto) Talbot % (Auto) Eos % (Auto) Baso % (Auto) Neut # (Auto) Lymph # (Auto) Talbot # (Auto) Eos # (Auto) Baso # (Auto) PT INR APTT Puncture Site Rr pCO2 43 pO2 294 H HCO3 22.0 ABG pH 7.32 L ABG Total CO2 23.5 ABG O2 Saturation 99.4 H ABG Base Excess -3.9 L Angelo Test Pos ABG Potassium 3.5 L A-a O2 Difference 365.0 Respiratory Index 1.2 Glucose 212 H Lactate 1.5 Vent Mode Bipap FiO2 100.0 Inspiratory BiPAP 10 Expiratory BiPAP 6 Sodium 141.0 Potassium Chloride 111.0 H Carbon Dioxide Anion Gap BUN Creatinine Est GFR ( Amer) Est GFR (Non-Af Amer) Random Glucose Calcium Total Bilirubin AST ALT Alkaline Phosphatase Total Creatine Kinase CK-MB (Mass) Troponin I NT-Pro-B Natriuret Pep Total Protein Albumin Globulin Albumin/Globulin Ratio Arterial Blood Potassium 3.5 L Urine Color Yellow Urine Clarity Clear Urine pH 6.0 Ur Specific [place] 1.010 Urine Protein 1+ H Urine Glucose (UA) Normal Urine Ketones Negative Urine Blood Negative Urine Nitrate Negative Urine Bilirubin Negative Urine Urobilinogen Normal Ur Leukocyte Esterase Neg Urine WBC (Auto) 1 Urine RBC (Auto) 2 Ur Squamous Epith Cells < 1 Hyaline Casts 11-20 H - Impressions Impression: Sinus rhythm with frequent PVc Assessment & Plan (1) Acute CHF Assessment and Plan: Reviewed Cath films. L M disease. As patient is DNR and DNI. Medical management. Continue DAPT. DIuretics. Compression stockings. Fluid restrictions. Discussed with team. Parameter for diuretics given. Status: Acute (2) Dyspnea Status: Acute
[2018-11-12 23:08] LABS: IRON 28 ug/dL (37-170)
[2018-11-12 23:18] LABS: % IRON SATURATION 9 (20-55); TOTAL IRON BINDING CAPACITY 304 ug/dL (250-450)
--- NOTE | 2018-11-13 00:31 | HP ---
The patient is 83-year-old female. The patient was seen and examined at the bedside on 11/12/2018. CHIEF COMPLAINT: Shortness o breath. HISTORY OF PRESENT ILLNESS: Ms. Merary Erickson is an 83-year-old female, resident of [facility] , history of coronary artery disease, status post cardiac cath, recently with Dr. Soto with multivessel disease. The patient was offered surgery, but the patient refused. The patient's niece and brother made the patient a DNR after talking to her. Now, the patient is DNR and DNI. The patient came with shortness of breath, fatigue, dyspnea on exertion. She had severe shortness of breath, and the patient has significant bilateral pleural effusion, congestive heart failure, and admitted for evaluation. PAST MEDICAL HISTORY: As above. In remote past, the patient did not have any medical problem, but recently she was discharged from [facility] with history of coronary artery disease, heart attack, status post cardiac catheterization, multivessel disease, refused CABG, congestive heart failure, DNR and DNI. ALLERGIES: THE PATIENT IS NOT ALLERGIC TO ANY MEDICATION. FAMILY HISTORY: Extensive heart disease, MIs on both sides of the family. MEDICATIONS: Aspirin, Plavix, Colace, Lovenox, Pepcid, Toprol, Pneumovax, Lonnie-Dur, and Crestor. PHYSICAL EXAMINATION: VITAL SIGNS: Temperature 97.4, pulse 89, respirations 20, blood pressure 93/61, and pulse oximetry 100. HEENT: Head: Normocephalic and atraumatic. Eyes: PERRLA. Extraocular muscles are intact. Conjunctivae pink. Nose patent. Mucous membrane moist. NECK: Supple. No carotid bruits, JVD, or thyromegaly. CHEST: Bilaterally symmetrical. HEART: S1 and S2 positive. LUNGS: Wheezing bilaterally. ABDOMEN: Soft. Bowel sounds present. No organomegaly. EXTREMITIES: No edema. No cyanosis. NEUROLOGIC: The patient is awake and alert. Moving all four extremities. No focal deficit. ASSESSMENT AND PLAN: Ms. Merary Erickson is an 83-year-old, came with congestive heart failure. Diuretics given. Bilevel positive airway pressure given. The patient does not want aggressive intervention, wants just medical treatment. The patient actually has hypotension, increased BUN, hyperglycemia, abnormal liver function test, BNP is very high at 18,400 because of congestive heart failure, proteinuria. The patient was admitted recently, made do not resuscitate and do not intubate, sent to [facility] for bed bug exterminator. Came with respiratory distress. The patient was put on continuous positive airway pressure. The patient refused intubation. The patient is not a good historian, history of coronary artery disease, dyspnea, history of catheterization last admission. Continue compression stocking, diuretics, fluid restriction. Parameters for diuretics given by the web art director to the nursing staff. Repeat laboratories. We will follow up. Erika Fontaine MD
[2018-11-13 08:16] LABS: HEMOGLOBIN 11.1 g/dL (11.0-16.0); MEAN CELL VOLUME 99.8 fL (81.0-99.0); MEAN CORPUSCULAR HEMOGLOBIN 33.4 pg (27.0-31.0); MEAN CORPUSCULAR HGB CONC 33.4 g/dL (33.0-37.0); MEAN PLATELET VOLUME 10.3 fL (7.2-11.7); RBC 3.33 Mil/uL (3.80-5.20); RED CELL DISTRIBUTION WIDTH 13.9 % (11.5-14.5); WHITE BLOOD COUNT 4.8 K/uL (4.8-10.8)
[2018-11-13 08:38] LABS: ALB/GLOB RATIO 1.4 (1.0-2.1); ALBUMIN 3.4 g/dL (3.5-5.0); ALT/SGPT 73 U/L (9-52); AST/SGOT 45 U/L (14-36); BLOOD UREA NITROGEN 40 mg/dL (7-17); CALCIUM 8.6 mg/dl (8.6-10.4); GFR NON-AFRICAN AMERICAN > 60
[2018-11-13] MEDS: Potassium Chloride 20 mEq ER Tab PO SCH (10:14)
[2018-11-13] MEDS: Metoprolol Succinate 12.5 mg XL Tab PO SCH (10:17)
[2018-11-13] MEDS: Enoxaparin 60 mg Syringe SC SCH ×2 (10:17→21:37)
--- NOTE | 2018-11-13 11:24 | CP.PCM.PN ---
Subjective - Date & Time of Evaluation Date of Evaluation: 11/13/18 Time of Evaluation: 11:22 - Subjective Subjective: Patient seen and evaluated Comfortable denies chest pain and dyspnea Physical Exam - Head Exam Head Exam: NORMOCEPHALIC - Neck Exam Neck exam: Positive for: Normal Inspection - Respiratory Exam Respiratory Exam: NORMAL BREATHING PATTERN - Cardiovascular Exam Additional comments: Sinus with frequent PVC. - GI/Abdominal Exam GI & Abdominal Exam: Hyperactive Bowel Sounds, Normal Bowel Sounds - Extremities Exam Extremities exam: Positive for: pedal edema - Neurological Exam Neurological exam: Alert - Impressions Impression: Sinus rhythm with frequent PVc Assessment & Plan (1) Acute CHF Assessment and Plan: L M disease and TVD. As patient is DNR and DNI. Medical management. Continue DAPT. DIuretics. Compression stockings. Status: Acute (2) Dyspnea Status: Acute and improving Objective - Vital Signs/Intake and Output Vital Signs (last 24 hours): Temp Pulse Resp BP Pulse Ox 97.8 F 69 17 106/76 100 11/13/18 07:18 11/13/18 07:42 11/13/18 07:18 11/13/18 10:15 11/13/18 07:18 Intake and Output: 11/13/18 11/13/18 06:59 18:59 Intake Total 350 Output Total 300 Balance 50 - Medications Medications: Current Medications Aspirin (Aspirin Chewable) 81 mg PO DAILY [facility] Last Admin: 11/13/18 10:15 Dose: 81 mg Clopidogrel Bisulfate (Plavix) 75 mg PO DAILY [facility] Last Admin: 11/13/18 10:14 Dose: 75 mg Docusate Sodium (Colace) 100 mg PO TID [facility] Last Admin: 11/13/18 10:15 Dose: 100 mg Enoxaparin Sodium (Lovenox) 60 mg SC Q12 [facility] Last Admin: 11/13/18 10:17 Dose: 60 mg Famotidine (Pepcid) 20 mg PO DAILY [facility] Last Admin: 11/13/18 10:15 Dose: 20 mg Furosemide (Lasix) 40 mg IVP BID [facility] Last Admin: 11/13/18 10:15 Dose: 40 mg Metoprolol Succinate (Toprol Xl) 12.5 mg PO DAILY [facility] Last Admin: 11/13/18 10:17 Dose: 12.5 mg Pneumococcal Polyvalent Vaccine (Pneumovax 23 Vaccine) 0.5 ml IM .ONCE ONE Stop: 12/25/18 14:01 Potassium Chloride (K-Dur 20 Meq Er Tab) 20 meq PO DAILY [facility] Last Admin: 11/13/18 10:14 Dose: 20 meq Rosuvastatin Calcium (Crestor) 10 mg PO HS [facility] Last Admin: 11/12/18 22:32 Dose: 10 mg - Labs Labs: 11/13/18 08:10 11/13/18 08:10 PT 14.4 SECONDS (9.7-12.2) H 11/11/18 23:42 INR 1.3 11/11/18 23:42 APTT 32 SECONDS (21-34) 11/11/18 23:42
--- NOTE | 2018-11-13 14:02 | CP.PCM.PN ---
Subjective - Date & Time of Evaluation Date of Evaluation: 11/13/18 Time of Evaluation: 11:20 - Subjective Subjective: the patient seen and examined Sitting comfortably in no distress Afebrile Denies chest pain Objective - Vital Signs/Intake and Output Vital Signs (last 24 hours): Temp Pulse Resp BP Pulse Ox 97.8 F 92 H 17 106/76 100 11/13/18 07:18 11/13/18 12:55 11/13/18 07:18 11/13/18 10:15 11/13/18 07:18 Intake and Output: 11/13/18 11/13/18 06:59 18:59 Intake Total 350 Output Total 300 Balance 50 - Medications Medications: Current Medications Aspirin (Aspirin Chewable) 81 mg PO DAILY [facility] Last Admin: 11/13/18 10:15 Dose: 81 mg Clopidogrel Bisulfate (Plavix) 75 mg PO DAILY [facility] Last Admin: 11/13/18 10:14 Dose: 75 mg Docusate Sodium (Colace) 100 mg PO TID [facility] Last Admin: 11/13/18 10:15 Dose: 100 mg Enoxaparin Sodium (Lovenox) 60 mg SC Q12 [facility] Last Admin: 11/13/18 10:17 Dose: 60 mg Famotidine (Pepcid) 20 mg PO DAILY [facility] Last Admin: 11/13/18 10:15 Dose: 20 mg Furosemide (Lasix) 40 mg IVP BID [facility] Last Admin: 11/13/18 10:15 Dose: 40 mg Metoprolol Succinate (Toprol Xl) 12.5 mg PO DAILY [facility] Last Admin: 11/13/18 10:17 Dose: 12.5 mg Pneumococcal Polyvalent Vaccine (Pneumovax 23 Vaccine) 0.5 ml IM .ONCE ONE Stop: 11/14/18 14:01 Potassium Chloride (K-Dur 20 Meq Er Tab) 20 meq PO DAILY [facility] Last Admin: 11/13/18 10:14 Dose: 20 meq Rosuvastatin Calcium (Crestor) 10 mg PO HS [facility] Last Admin: 11/12/18 22:32 Dose: 10 mg - Labs Labs: 11/13/18 08:10 11/13/18 08:10 PT 14.4 SECONDS (9.7-12.2) H 11/11/18 23:42 INR 1.3 11/11/18 23:42 APTT 32 SECONDS (21-34) 11/11/18 23:42 - Head Exam Head Exam: ATRAUMATIC, NORMOCEPHALIC - ENT Exam ENT Exam: Mucous Membranes Moist - Neck Exam Neck Exam: Normal Inspection - Respiratory Exam Respiratory Exam: Decreased Breath Sounds - Cardiovascular Exam Cardiovascular Exam: REGULAR RHYTHM - GI/Abdominal Exam GI & Abdominal Exam: Soft, Normal Bowel Sounds Assessment and Plan (1) Acute CHF Assessment & Plan: continue diuretics Followup chest x-ray Clinically improving No aggressive intervention Status: Acute
--- NOTE | 2018-11-13 14:16 | CP.PCM.CON ---
History of Present Illness - History of Present Illness History of Present Illness: Palliative consult requested for comfort care discussion as requested by The patient's niece Patient is a 83 yo female known to me from last admission when she was a ICU patient. Patient CHEO with respiratory distress, given CPAP on field, refused intubation. Patient was made DNR/DNI on last admission and POLST is on the chart. CXR was significant for pleural effusion, CHF and questionable pneumonia. BNP 14745. Patient placed on Lasix and Colace and Neb Treatment. Palliative care was contacted by the bilingual case manager who stated patient's niece request for comfort care evaluation. PMH: CAD, refused CABG, S/P cardiac cath Soc. Hx: single, came from [facility], marti Phipps involved in care Fam. Hx: unknown at this time Review of Systems - Constitutional Constitutional: Malaise, Weakness - EENT Eyes: absent: As Per HPI, Blind Spots, Blurred Vision, Change in Vision, Decreased Night Vision, Diplopia, Discharge, Dry Eye, Exophthalmos, Floaters, Irritation, Itchy Eyes, Loss of Peripheral Vision, Pain, Photophobia, Requires Corrective Lenses, Sees Flashes, Spots in Vision, Tunnel Vision, Other Visual Disturbances, Loss of Vision, Other Ears: absent: As Per HPI, Decreased Hearing, Ear Discharge, Ear Pain, Tinnitus, Abnormal Hearing, Disequilibrium, Dizziness, Other Nose/Mouth/Throat: absent: As Per HPI, Epistaxis, Nasal Congestion, Nasal Discharge, Nasal Obstruction, Nasal Trauma, Nose Pain, Post Nasal Drip, Sinus Pain, Sinus Pressure, Bleeding Gums, Change in Voice, Dental Pain, Dry Mouth, Dysphagia, Halitosis, Hoarsness, Lip Swelling, Mouth Lesions, Mouth Pain, Odynophagia, Sore Throat, Throat Swelling, Tongue Swelling, Facial Pain, Neck Pain, Neck Mass, Other - Breasts Breasts: absent: As Per HPI, Change in Shape, Mass, Pain, Nipple Discharge, Nipple Inversion, Skin Changes, Swelling, Other - Cardiovascular Cardiovascular: Dyspnea, Dyspnea on Exertion, Edema, Leg Edema, Rapid Heart Rate - Respiratory Respiratory: Dyspnea, Dyspnea on Exertion - Gastrointestinal Gastrointestinal: absent: As Per HPI, Abdominal Pain, Belching, Bloating, Change in Bowel Habits, Change in Stool Character, Coffee Ground Emesis, Constipation, Cramping, Diarrhea, Dyspepsia, Dysphagia, Early Satiety, Excessive Flatus, Fecal Incontinence, Heartburn, Hematemesis, Hematochezia, Loose Stools, Melena, Nausea, Odynophagia, Temesmus, Vomiting, Other - Genitourinary Genitourinary: absent: As Per HPI, Change in Urinary Stream, Difficulty Urinating, Dysuria, Flank Pain, Hematuria, Pyuria, Nocturia, Urinary Incontinence, Urinary Frequency, Urinary Hesitance, Urinary Urgency, Voiding Freq/Small Amts, Freq UTI, Hx Renal/Bladder Calculi, Hx /Renal Surgery, Bladder Distension, Other - Reproductive: Female Reproductive:Female: Post Menopausal - Menstruation Menstruation: Post Menopausal - Musculoskeletal Musculoskeletal: Muscle Weakness - Integumentary Integumentary: absent: As Per HPI, Acne, Alopecia, Bleeding Lesions, Change in Hair, Change in Nails, Change in Pigmentation, Changing Lesions, Dry Skin, Erythema, Furuncle, Hirsutism, Lesions, New Lesions, Non-Healing Lesions, Photosensitivity, Pruritus, Rash, Skin Pain, Skin Ulcer, Sores, Striae, Swelling, Unusual Bruising, Wounds, Jaundice, Other - Neurological Neurological: Weakness - Psychiatric Psychiatric: Memory Loss - Endocrine Endocrine: absent: As Per HPI, Change in Body Appearance, Change in Libido, Cold Intolorance, Deepening of Voice, Excessive Sweating, Fatigue, Flushing, Heat Intolorance, Increase in Ring/Shoe/Hat Size, Palpitations, Polydipsia, Polyphagia, Polyuria, Other - Hematologic/Lymphatic Hematologic: absent: As Per HPI, Easy Bleeding, Easy Bruising, Lymphadenopathy, Other Past Patient History - Infectious Disease Hx of Infectious Diseases: None - Tetanus Immunizations Tetanus Immunization: Unknown - Past Medical History & Family History Past Medical History?: Yes - Past Social History Smoking Status: Never Smoked - CARDIAC Hx Congestive Heart Failure: Yes - MUSCULOSKELETAL/RHEUMATOLOGICAL Hx Falls: No - PSYCHIATRIC Hx Substance Use: No - SURGICAL HISTORY Hx Surgeries: No - ANESTHESIA Hx Anesthesia: No Meds Allergies/Adverse Reactions: Allergies Allergy/AdvReac Type Severity Reaction Status Date / Time No Known Allergies Allergy Verified 10/21/18 21:29 - Medications Medications: Current Medications Aspirin (Aspirin Chewable) 81 mg PO DAILY [facility] Last Admin: 11/13/18 10:15 Dose: 81 mg Clopidogrel Bisulfate (Plavix) 75 mg PO DAILY [facility] Last Admin: 11/13/18 10:14 Dose: 75 mg Docusate Sodium (Colace) 100 mg PO TID [facility] Last Admin: 11/13/18 10:15 Dose: 100 mg Enoxaparin Sodium (Lovenox) 60 mg SC Q12 [facility] Last Admin: 11/13/18 10:17 Dose: 60 mg Famotidine (Pepcid) 20 mg PO DAILY [facility] Last Admin: 11/13/18 10:15 Dose: 20 mg Furosemide (Lasix) 40 mg IVP BID [facility] Last Admin: 11/13/18 10:15 Dose: 40 mg Metoprolol Succinate (Toprol Xl) 12.5 mg PO DAILY [facility] Last Admin: 11/13/18 10:17 Dose: 12.5 mg Pneumococcal Polyvalent Vaccine (Pneumovax 23 Vaccine) 0.5 ml IM .ONCE ONE Stop: 11/14/18 14:01 Potassium Chloride (K-Dur 20 Meq Er Tab) 20 meq PO DAILY [facility] Last Admin: 11/13/18 10:14 Dose: 20 meq Rosuvastatin Calcium (Crestor) 10 mg PO HS [facility] Last Admin: 11/12/18 22:32 Dose: 10 mg Physical Exam - Constitutional Appears: Chronically Ill - Head Exam Head Exam: ATRAUMATIC, NORMAL INSPECTION, NORMOCEPHALIC - Eye Exam Eye Exam: EOMI, Normal appearance, PERRL Pupil Exam: NORMAL ACCOMODATION, PERRL - ENT Exam ENT Exam: Mucous Membranes Moist, Normal Exam - Neck Exam Neck exam: Positive for: Normal Inspection - Respiratory Exam Respiratory Exam: Decreased Breath Sounds, Prolonged Expiratory Phase - Cardiovascular Exam Cardiovascular Exam: Tachycardia, Irregular Rhythm - GI/Abdominal Exam GI & Abdominal Exam: Diminished Bowel Sounds, Soft - Rectal Exam Rectal Exam: Deferred - Extremities Exam Extremities exam: Positive for: pedal edema, pedal pulses present - Back Exam Back exam: NORMAL INSPECTION - Neurological Exam Neurological exam: Alert, Oriented x3 - Psychiatric Exam Psychiatric exam: Anxious - Skin Skin Exam: Mottled, Normal Color Results - Vital Signs Recent Vital Signs: Last Vital Signs Temp 97.8 F 11/13/18 07:18 Pulse 92 H 11/13/18 12:55 Resp 17 11/13/18 07:18 BP 106/76 11/13/18 10:15 Pulse Ox 100 11/13/18 07:18 - Labs Result Diagrams: 11/13/18 08:10 11/13/18 08:10 Labs: Laboratory Results - last 24 hr 11/12/18 11/12/18 11/12/18 22:54 22:54 22:54 WBC RBC Hgb Hct MCV MCH MCHC RDW Plt Count MPV Sodium Potassium Chloride Carbon Dioxide Anion Gap BUN Creatinine Est GFR ( Amer) Est GFR (Non-Af Amer) Random Glucose Hemoglobin A1c 5.7 Calcium Iron 28 L TIBC 304 % Saturation 9 L Total Bilirubin AST ALT Alkaline Phosphatase NT-Pro-B Natriuret Pep 56986 H Total Protein Albumin Globulin Albumin/Globulin Ratio Triglycerides 43 Cholesterol 130 LDL Cholesterol Direct 71 HDL Cholesterol 64 Vitamin B12 411 Folate 11.0 TSH 3rd Generation 11/13/18 11/13/18 08:10 08:10 WBC 4.8 RBC 3.33 L Hgb 11.1 Hct 33.2 L MCV 99.8 H MCH 33.4 H MCHC 33.4 RDW 13.9 Plt Count 158 MPV 10.3 Sodium 140 Potassium 4.0 Chloride 104 Carbon Dioxide 31 H Anion Gap 8 L BUN 40 H Creatinine 0.8 Est GFR ( Amer) > 60 Est GFR (Non-Af Amer) > 60 Random Glucose 96 D Hemoglobin A1c Calcium 8.6 Iron TIBC % Saturation Total Bilirubin 0.5 AST 45 H D ALT 73 H D Alkaline Phosphatase 72 NT-Pro-B Natriuret Pep Total Protein 5.9 L Albumin 3.4 L D Globulin 2.5 Albumin/Globulin Ratio 1.4 Triglycerides Cholesterol LDL Cholesterol Direct HDL Cholesterol Vitamin B12 Folate TSH 3rd Generation 0.49 Assessment & Plan - Assessment and Plan (Free Text) Assessment: Palliative consult DNR/DNi, POLST on chart, PPS 30% I reviewed Medical records, all diagnostic studies, examined patient in the bed and discussed goals of care with her niece Desire Patient is alert, oriented X 3 with affect that is anxious. Patient unable to talk in full sentences as she gets SOB while talking. Breathing is shallow and fast. O2 Sat 96 % with NC. There is no cough nor sputum production. Abdomen soft, actibe bowel sounds, no BM since admission. Patient repositions with a ssistance. Significant pedal edema of low extremities. Lasix 40 mg Iv on board. urine output 230 cc/ 24 hr. BP 106/76, HR 92, afebrile WBC 4.2, Hb 11.1, BNP 60959 I discussed goals of care with patient's niece Desire, over the phone . She said that she has noticed significant decline in her aunt's condition since last admission and feels " the OR is awaiting to happen". Desire stated her aunt's condition had improved while was here last time, and stable condition lasted about 1.5 week after the discharge. Desire understands that her aunt's condition is chronic and does not want to see her moved so often from [place] to hospital and back. She feels, her aunt should be treated conservatively with " medications to make her sleep when breathing gets worse". I offered more information about comfort care. Desire agreed it was what she was looking for for her aunt. This was shared with Doctor Minna and she agreed. I shared this with Production Maintenance Technician and ordered Hospice evaluation. The niece will be coming in tomorrow and I advised Hospice career representative calls her to establish the meeting time. Impression * Chronically ill lady with exacerbation of CHF * Pedal edema * Shortness of breath * Limited mobility * DNR/DNI * Niece advocates for comfort care at [facility] Suggestions * Comfort care for symptoms control and promotion of quality of life * Hospice eval * Discharge planing to [facility] under the hospice care * Agree with DNR/DNI palliative care will sign off at this time. Advance care planing 36 min.
--- NOTE | 2018-11-13 20:43 | CARD ---
APPROVED REPORT Date of service: 11/11/2018 EKG Measurement Heart [id number] <Conclusion> Sinus rhythm with APCs Anterolateral infarct, age undetermined Abnormal ECG
[2018-11-14] MEDS: Metoprolol Succinate 12.5 mg XL Tab PO SCH (10:15)
[2018-11-14] MEDS: Potassium Chloride 20 mEq ER Tab PO SCH (10:16)
[2018-11-14] MEDS: Enoxaparin 60 mg Syringe SC SCH ×2 (10:20→21:40)
[2018-11-14] MEDS ORDERED: Pneumococcal 23-Valent Vaccine IM ONE (14:00)
--- NOTE | 2018-11-14 14:44 | CP.PCM.PN ---
Subjective - Date & Time of Evaluation Date of Evaluation: 11/14/18 Time of Evaluation: 14:40 - Subjective Subjective: Sitting in chair having dinner. Family around. No chest pain but some SOB as per daughter. Objective - Vital Signs/Intake and Output Vital Signs (last 24 hours): Temp Pulse Resp BP Pulse Ox 98.2 F 73 18 105/71 97 11/14/18 07:05 11/14/18 07:05 11/14/18 07:05 11/14/18 10:15 11/14/18 07:05 Intake and Output: 11/14/18 11/14/18 06:59 18:59 Intake Total 280 Balance 280 - Medications Medications: Current Medications Aspirin (Aspirin Chewable) 81 mg PO DAILY [facility] Last Admin: 11/14/18 10:16 Dose: 81 mg Clopidogrel Bisulfate (Plavix) 75 mg PO DAILY [facility] Last Admin: 11/14/18 10:16 Dose: 75 mg Docusate Sodium (Colace) 100 mg PO TID [facility] Last Admin: 11/14/18 10:18 Dose: 100 mg Enoxaparin Sodium (Lovenox) 60 mg SC Q12 [facility] Last Admin: 11/14/18 10:20 Dose: 60 mg Famotidine (Pepcid) 20 mg PO DAILY [facility] Last Admin: 11/14/18 10:16 Dose: 20 mg Furosemide (Lasix) 40 mg IVP BID [facility] Last Admin: 11/14/18 10:15 Dose: 40 mg Metoprolol Succinate (Toprol Xl) 12.5 mg PO DAILY [facility] Last Admin: 11/14/18 10:15 Dose: 12.5 mg Potassium Chloride (K-Dur 20 Meq Er Tab) 20 meq PO DAILY [facility] Last Admin: 11/14/18 10:16 Dose: 20 meq Rosuvastatin Calcium (Crestor) 10 mg PO HS [facility] Last Admin: 11/13/18 21:37 Dose: 10 mg - Labs Labs: 11/13/18 08:10 11/13/18 08:10 PT 14.4 SECONDS (9.7-12.2) H 11/11/18 23:42 INR 1.3 11/11/18 23:42 APTT 32 SECONDS (21-34) 11/11/18 23:42 - Head Exam Head Exam: NORMOCEPHALIC - Neck Exam Neck Exam: Normal Inspection - Respiratory Exam Respiratory Exam: NORMAL BREATHING PATTERN - Cardiovascular Exam Cardiovascular Exam: REGULAR RHYTHM - Neurological Exam Neurological Exam: Alert, Oriented x3 Assessment and Plan (1) Acute CHF Assessment & Plan: CAD and CHF. Discussed with daughter in detail. Since patient is DNR and DNI. Medical management only. Status: Acute (2) Dyspnea Status: Acute
--- NOTE | 2018-11-14 18:18 | CP.PCM.PN ---
Subjective - Date & Time of Evaluation Date of Evaluation: 11/14/18 Time of Evaluation: 16:00 - Subjective Subjective: patient seen and examined Sitting comfortably in no distress Dyspnea on exertion Afebrile No chest pain Objective - Vital Signs/Intake and Output Vital Signs (last 24 hours): Temp Pulse Resp BP Pulse Ox 98.1 F 81 18 89/51 L 98 11/14/18 15:00 11/14/18 15:15 11/14/18 15:00 11/14/18 17:57 11/14/18 15:00 Intake and Output: 11/14/18 11/14/18 06:59 18:59 Intake Total 280 Balance 280 - Medications Medications: Current Medications Aspirin (Aspirin Chewable) 81 mg PO DAILY [facility] Last Admin: 11/14/18 10:16 Dose: 81 mg Clopidogrel Bisulfate (Plavix) 75 mg PO DAILY [facility] Last Admin: 11/14/18 10:16 Dose: 75 mg Docusate Sodium (Colace) 100 mg PO TID [facility] Last Admin: 11/14/18 17:55 Dose: Not Given Enoxaparin Sodium (Lovenox) 60 mg SC Q12 [facility] Last Admin: 11/14/18 10:20 Dose: 60 mg Famotidine (Pepcid) 20 mg PO DAILY [facility] Last Admin: 11/14/18 10:16 Dose: 20 mg Furosemide (Lasix) 40 mg IVP BID [facility] Last Admin: 11/14/18 17:57 Dose: Not Given Metoprolol Succinate (Toprol Xl) 12.5 mg PO DAILY [facility] Last Admin: 11/14/18 10:15 Dose: 12.5 mg Potassium Chloride (K-Dur 20 Meq Er Tab) 20 meq PO DAILY [facility] Last Admin: 11/14/18 10:16 Dose: 20 meq Rosuvastatin Calcium (Crestor) 10 mg PO HS [facility] Last Admin: 11/13/18 21:37 Dose: 10 mg - Labs Labs: 11/13/18 08:10 11/13/18 08:10 PT 14.4 SECONDS (9.7-12.2) H 11/11/18 23:42 INR 1.3 11/11/18 23:42 APTT 32 SECONDS (21-34) 11/11/18 23:42 - Head Exam Head Exam: ATRAUMATIC, NORMOCEPHALIC - ENT Exam ENT Exam: Mucous Membranes Moist - Respiratory Exam Respiratory Exam: Rales, Rhonchi - Cardiovascular Exam Cardiovascular Exam: REGULAR RHYTHM - GI/Abdominal Exam GI & Abdominal Exam: Soft, Normal Bowel Sounds - Extremities Exam Extremities Exam: Pedal Edema Assessment and Plan (1) Acute CHF Assessment & Plan: Continue diuretics Medical management Follow-up chest x-ray BiPAP as needed Status: Acute
--- NOTE | 2018-11-14 20:08 | CP.PCM.PN ---
Subjective - Date & Time of Evaluation Date of Evaluation: 11/14/18 Time of Evaluation: 20:08 - Subjective Subjective: Patient seen and evaluated Comfortable denies chest pain and dyspnea Physical Exam - Head Exam Head Exam: NORMOCEPHALIC - Neck Exam Neck exam: Positive for: Normal Inspection - Respiratory Exam Respiratory Exam: NORMAL BREATHING PATTERN - Cardiovascular Exam Additional comments: Sinus with frequent PVC. - GI/Abdominal Exam GI & Abdominal Exam: Hyperactive Bowel Sounds, Normal Bowel Sounds - Extremities Exam Extremities exam: Positive for: pedal edema - Neurological Exam Neurological exam: Alert - Impressions Impression: Sinus rhythm with frequent PVc Assessment & Plan (1) Acute CHF Assessment and Plan: L M disease and TVD. As patient is DNR and DNI. Medical management. Continue DAPT. DIuretics.. Status: Acute (2) Dyspnea Status: Acute and improving Objective - Vital Signs/Intake and Output Vital Signs (last 24 hours): Temp Pulse Resp BP Pulse Ox 98.1 F 81 18 89/51 L 98 11/14/18 15:00 11/14/18 15:15 11/14/18 15:00 11/14/18 17:57 11/14/18 15:00 - Medications Medications: Current Medications Aspirin (Aspirin Chewable) 81 mg PO DAILY [facility] Last Admin: 11/14/18 10:16 Dose: 81 mg Clopidogrel Bisulfate (Plavix) 75 mg PO DAILY [facility] Last Admin: 11/14/18 10:16 Dose: 75 mg Docusate Sodium (Colace) 100 mg PO TID [facility] Last Admin: 11/14/18 17:55 Dose: Not Given Enoxaparin Sodium (Lovenox) 60 mg SC Q12 [facility] Last Admin: 11/14/18 10:20 Dose: 60 mg Famotidine (Pepcid) 20 mg PO DAILY [facility] Last Admin: 11/14/18 10:16 Dose: 20 mg Furosemide (Lasix) 40 mg IVP BID [facility] Last Admin: 11/14/18 17:57 Dose: Not Given Metoprolol Succinate (Toprol Xl) 12.5 mg PO DAILY [facility] Last Admin: 11/14/18 10:15 Dose: 12.5 mg Potassium Chloride (K-Dur 20 Meq Er Tab) 20 meq PO DAILY [facility] Last Admin: 11/14/18 10:16 Dose: 20 meq Rosuvastatin Calcium (Crestor) 10 mg PO HS [facility] Last Admin: 11/13/18 21:37 Dose: 10 mg - Labs Labs: 11/13/18 08:10 11/13/18 08:10 PT 14.4 SECONDS (9.7-12.2) H 11/11/18 23:42 INR 1.3 11/11/18 23:42 APTT 32 SECONDS (21-34) 11/11/18 23:42
[2018-11-15 00:25] VITALS: RESP 20
--- NOTE | 2018-11-15 08:15 | PN ---
DATE: 11/13/2018 SUBJECTIVE: The patient is an 83-year-old female. The patient was seen and examined at the bedside on 11/13/2018. Looking comfortable. Denies chest pain or shortness of breath. No fever. No chills. No hematuria or hematochezia. No headache or dizziness, but looks like fatigued and tired. PHYSICAL EXAMINATION: VITAL SIGNS: Temperature 97.5, pulse 71, blood pressure 90/51, and respiratory rate 18. HEENT: Head, normocephalic and atraumatic. Eyes, PERRLA. Extraocular muscles are intact. Conjunctivae clear. Nose patent. Mucous membranes are moist. NECK: Supple. No carotid bruits. No JVD or thyromegaly. CHEST: Bilaterally symmetrical. HEART: S1 and S2 positive. LUNGS: Clear to auscultation. ABDOMEN: Soft. Bowel sounds present. No organomegaly. EXTREMITIES: No edema. No cyanosis. NEUROLOGIC: The patient is awake and alert. Moving all four extremities. No focal deficits. MEDICATIONS: Aspirin, Colace, Crestor, K-Dur, Lasix, Lovenox, Pepcid, Plavix, and Toprol. LABORATORY DATA: White blood cells 4.8, hemoglobin 11.1, hematocrit 33.2, and platelets 158. Sodium 140, potassium 4.1, BUN 40, and creatinine 0.8. ASSESSMENT AND PLAN: The patient is an 83-year-old lady with increased blood urea nitrogen, abnormal liver function tests, congestive heart failure, proteinuria. Seen by plastic fixture builder, Dr. William Soto and contact printer dry film, Dr. Myron Gutierrez. Came with exacerbation of congestive heart failure. Continue diuretics. Follow up with chest x-ray. The patient's niece requested hospice care; she is power of deputy attorney general. Last admission, the patient was in intensive care unit with respiratory distress and was given continuous positive airway pressure, refused intubation. The patient is Do Not Resuscitate and Do Not Intubate. Now this time, she came with pleural effusion, congestive heart failure, questionable pneumonia. The patient was given Lasix, Colace, and nebulizer treatment , blood pressure is dropping. The patient has a history of coronary artery disease. Catheterization was done on last admission. The patient looks like chronically ill. Pedal edema. Limited mobility. Needs care, comfort care at [facility]. Comfort care for symptomatic control and promotion of quality of life. We will continue treatment palliative care in [facility]. We will follow up. Erika Fontaine MD [place]
[2018-11-15 09:14] VITALS: TEMP 97.6; O2SAT 97
--- NOTE | 2018-11-15 09:47 | PN ---
DATE: 11/14/2018 SUBJECTIVE: The patient is an 83-year-old female. The patient was seen and examined at the bedside on 11/14/2018. Sitting on the chair. No fever. No chills. No nausea or vomiting. No hematuria or hematochezia. Swelling of the leg is better. No headache. No dizziness. No chest pain. No palpitation. PHYSICAL EXAMINATION: VITAL SIGNS: Temperature 98.2, pulse 73, respirations 18, blood pressure 105/71, pulse oximetry 97%. HEENT: Head normocephalic and atraumatic. Eyes PERRLA. Extraocular muscles intact. Conjunctivae clear. Nose patent. NECK: Supple. No carotid bruit. No JVD or thyromegaly. CHEST: Bilaterally symmetrical. HEART: S1 and S2 positive. LUNGS: Clear to auscultation. ABDOMEN: Soft. Bowel sounds present. No organomegaly. EXTREMITIES: Trace edema. NEUROLOGIC: The patient is awake, alert. Moving all four extremities. No focal deficits. MEDICATIONS: Aspirin, Plavix, Colace, Lovenox, Pepcid, Lasix, Toprol, potassium, Crestor. LABORATORY DATA: White blood cells 4.8, hemoglobin 11.1, hematocrit 33.2, platelets 158. Sodium 140, potassium 4, BUN 40, creatinine 0.8, glucose 96. ASSESSMENT AND PLAN: The patient is an 83-year-old lady with anemia, hypoglycemia. Came with acute congestive heart failure, history of coronary artery disease. I reviewed Dr. Amin's notes. The patient is Do Not Resuscitate and Do Not Intubate. He had discussion done with the family, main thing is medical treatment and comfort care. According to the patient, her dyspnea is getting a little bit better. The patient has a history of pleural effusion, questionable pneumonia. Brain natriuretic peptide is high. Getting Lasix, and DuoNeb. Discussion done with the patient's nurse. Repeat labs. We will follow up. Erika Fontaine MD [facility]
[2018-11-15 10:05] VITALS: BP 99/65; PULSE 83
[2018-11-15] MEDS: Enoxaparin 60 mg Syringe SC SCH (10:15)
[2018-11-15] MEDS: Potassium Chloride 20 mEq ER Tab PO SCH (10:15)
[2018-11-15] MEDS: Metoprolol Succinate 12.5 mg XL Tab PO SCH (10:16)
--- NOTE | 2018-11-15 15:34 | CP.PCM.PN ---
Subjective - Date & Time of Evaluation Date of Evaluation: 11/15/18 Time of Evaluation: 13:40 - Subjective Subjective: 83 year old female with history of CAD refused CABG consulted for CHF and dyspnea Patient evaluated at bedside. Laying comfortably in no distress. Denies chest pain, SOB Afebrile, SpO2 97% on 2LPM NC Still rales and rhonchi on lung exam but has improved Continue medical management Continue O2, BiPap PRN No thoracocentesis at this time Objective - Vital Signs/Intake and Output Vital Signs (last 24 hours): Temp Pulse Resp BP Pulse Ox 97.6 F 83 20 99/65 L 97 11/15/18 07:00 11/15/18 10:04 11/15/18 07:00 11/15/18 10:16 11/15/18 13:37 Intake and Output: 11/15/18 11/15/18 06:59 18:59 Intake Total 480 Balance 480 - Labs Labs: 11/13/18 08:10 11/13/18 08:10 PT 14.4 SECONDS (9.7-12.2) H 11/11/18 23:42 INR 1.3 11/11/18 23:42 APTT 32 SECONDS (21-34) 11/11/18 23:42 Assessment and Plan (1) Acute CHF Status: Acute
--- NOTE | 2018-11-15 17:08 | PCM.HF ---
Heart Failure Core Measure - Heart Failure Ejection Fraction: Less Than 40 % (EF 25-30%) CM Inhibitor Prescribed: No Contraindication/Reason for not providing: LOW [employer]ODUCTION TRAINER Beta-Cheryl Prescribed: Metoprolol Succinate Angiotensin II Receptor Cheryl Prescribed: No Contraindication/Reason for not providing: low BP AnticoagulationTherapy for Atrial Fibrillation/Atrialflutter: No Contraindication/Reason for not providing: NSR Aldosterone Antagonist Prescribed: No Contraindication/Reason for not providing: low BP Hydralazine Nitrate Prescribed: No Contraindication/Reason for not providing: LOW BP Implantable Cardioverter Defibrillator Therapy: No Contraindication/Reason for not providing: family decided medical management only Cardiac Resynchronization Therapy Prescribed: No Contraindication/Reason for not providing: not indicated - Follow up Will be discharged to: [facility] ([facility]
--- NOTE | 2018-11-15 17:14 | CP.PCM.PN ---
Subjective - Date & Time of Evaluation Date of Evaluation: 11/15/18 Time of Evaluation: 11:00 - Subjective Subjective: alert, awake, no sob or chest pains, NAD. Objective - Vital Signs/Intake and Output Vital Signs (last 24 hours): Temp Pulse Resp BP Pulse Ox 97.6 F 83 20 99/65 L 97 11/15/18 07:00 11/15/18 10:04 11/15/18 07:00 11/15/18 10:16 11/15/18 13:37 Intake and Output: 11/15/18 11/15/18 06:59 18:59 Intake Total 480 Balance 480 - Labs Labs: 11/13/18 08:10 11/13/18 08:10 PT 14.4 SECONDS (9.7-12.2) H 11/11/18 23:42 INR 1.3 11/11/18 23:42 APTT 32 SECONDS (21-34) 11/11/18 23:42 Assessment and Plan - Assessment and Plan (Free Text) Assessment: 83 year old female admitted with CHF exacerbation, seen and examined. Alert, out of bed on the chair, comfortable. No sob or chest pains, no disctress. Discussed with DR Fontaine , plan to discharge back to [facility] today.
== END 2018-11-15 15:28 | disposition home or self-care (01) | DRG 293 ==
LOC: C.ER 23:25 → C.5S 11-12 01:27
PROVIDERS: ADMIT Internal Medicine; ATTEND Internal Medicine
PROC: 5A09457 Assistance with Respiratory Ventilation, 24-96 Consecutive Hours, Continuous Positive Airway Pressure (ICD-10-PCS; principal; 2018-11-12)
DX: I50.9 Heart failure, unspecified (principal); I25.10 Atherosclerotic heart disease of native coronary artery without angina pectoris; E16.2 Hypoglycemia, unspecified; I49.3 Ventricular premature depolarization; I95.9 Hypotension, unspecified; R06.02 Shortness of breath; D64.9 Anemia, unspecified; Z66 Do not resuscitate; Z51.5 Encounter for palliative care; I25.2 Old myocardial infarction